=== PATIENT | female | born 1970 | race Caucasian/White ===

== ENCOUNTER 2019-07-25 18:50 | Emergency (ER) | payer BC, OTHER, SELFPAY ==
[2019-07-25] MEDS ORDERED: NA CHLORIDE 0.9% 2,000 ML ONE (19:30)
[2019-07-25 19:46] LABS: Absolute Lymphocytes (CBC) 2.2 K/uL (0.7-4.9); Basophils % 0.8 % (0-1.3); Hematocrit 37.3 % (36.0-45.0); Lymphocytes % 25.3 % (15.3-44.8); MPV 8.4 fL (7.6-11.3); RBC Red Blood Cell Count 4.09 M/uL (3.86-4.86)
[2019-07-25 19:49] LABS: Protime INR 0.96
[2019-07-25 20:25] LABS: ALT/SGPT 29 U/L (12-78); AST/SGOT 24 U/L (15-37); Albumin 3.9 g/dL (3.4-5.0); Alkaline Phosphatase 56 U/L (45-117); BUN Blood Urea Nitrogen 10 mg/dL (7-18); Bicarbonate 22 mmol/L (21-32); Bilirubin Direct < 0.1 mg/dL (0-0.2); Bilirubin Total 0.2 mg/dL (0.2-1.0); Glucose Level 138 mg/dL (74-106); Potassium 3.3 mmol/L (3.5-5.1); Sodium Level 134 mmol/L (136-145)
[2019-07-25] MEDS ORDERED: KCL 20 MEQ/100 mL IVPB 20 MEQ/100 ML BAG IV ONE (21:07)
[2019-07-25] MEDS ORDERED: POTASSIUM CL SA 10 MEQ TAB PO ONE (21:07)
[2019-07-25] MEDS ORDERED: NA CHLORIDE 0.9% 250 ML ONE (21:08)
[2019-07-25 22:22] LABS: Barbiturates NEGATIVE (NEGATIVE); Benzodiazepines NEGATIVE (NEGATIVE); Cocaine NEGATIVE (NEGATIVE); METHAMPHETAM POSITIVE (NEGATIVE); Methadone NEGATIVE (NEGATIVE); Opiates NEGATIVE (NEGATIVE); Phencyclidine NEGATIVE (NEGATIVE); THC Cannibis NEGATIVE (NEGATIVE)
[2019-07-25] MEDS ORDERED: NA CHLORIDE 0.9% 1,000 ML ONE (23:18)
[2019-07-25 23:24] LABS: Urine Blood NEGATIVE (NEG); Urine Glucose NEGATIVE (NEG); Urine Protein NEGATIVE (NEG); Urine Specific Gravity <1.005 (1.005-1.030)
--- NOTE | 2019-07-26 04:25 | ER ---
Nurse's Notes [facility] Name: Tanvi Waters Age: 48 yrs Sex: Female : 1970 Arrival Date: 07/25/2019 Time: 18:53 Bed 3 Private MD: Diagnosis: Suicidal ideations;Intentional Overdose Presentation: 07/25 18:54 Presenting complaint: EMS states: Auditory hallucinations x 2 years, but has gotten ss worse over the past 2-3 weeks. Pt took Latuda 80 mg x 10 tabs and Hydroxyzine HCL 25 mg x 10 tablets at 1800 today. Transition of care: patient was not received from another setting of care. Onset of symptoms is unknown. Risk Assessment: Do you want to hurt yourself or someone else? Patient reports no desire to harm self or others. Initial Sepsis Screen: Does the patient meet any 2 criteria? HR > 90 bpm. Does the patient have a suspected source of infection? No. Patient's initial sepsis screen is negative. Care prior to arrival: None. 18:54 Method Of Arrival: EMS: [facility] 18:54 Acuity: CONCHITA 2 ss Historical: - Allergies: 19:01 Paxil; ss - Home Meds: 19:01 Latuda 80 mg oral tab 1 tab once daily [Active]; hydroxyzine HCl 25 mg Oral tab 1 tab ss daily [Active]; - PMHx: 19:01 PTSD; Bipolar disorder; Depression; ss - PSHx: 19:01 partial hysterectomy; ; partial thyroidectomy; ss - Immunization history:: Adult Immunizations up to date. - Coronavirus screen:: The patient has NOT traveled to [place], [place], or [place] in the past 14 days. Proceed with normal triage process as indicated. - Social history:: Smoking status: Patient denies any tobacco usage or history of. - Family history:: not pertinent. - Ebola Screening: : Patient denies exposure to infectious person Patient denies travel to an Ebola-affected area in the 21 days before illness onset. - Hospitalizations: : No recent hospitalization is reported. Screenin:27 Abuse screen: Denies threats or abuse. Nutritional screening: No deficits noted. vc Tuberculosis screening: No symptoms or risk factors identified. Fall Risk Secondary diagnosis (15 points) impaired mobility, impaired cognitive ability related to medication consumption.. IV access (20 points). Ambulatory Aid- None/Bed Rest/Nurse Assist (0 pts). Gait- Weak (10 pts.). Mental Status- Overestimates/Forgets Limitations (15 pts.). Total Santana Fall Scale indicates High Risk Score (45 or more points). Fall prevention measures have been instituted. Side Rails Up X 2 Placed Close to Nursing Station 1:1 Attendant Assigned Frequent Obs/Assessments Occuring Family Present and informed to notify staff if the need to leave the bedside. Assessment: 19:02 Reassessment: Poison control recommends that if patient looks drowsy give activated ss charcoal now. As long as patient is protecting her airway and has good bowel sounds, go ahead and administer activated charcoal. latuda may cause vomiting, lethargy, hypotension, tachycardia and possibly some dystonia and elevated TSH level. 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 Recommendations to obtain tox labs, telemetry, observe for a minimum of 6-8 hours if patient is still exhibiting symptoms a longer obs time is recommended. Case number is [id number]. 19:30 General: Appears in no apparent distress. uncomfortable, Behavior is calm, cooperative. vc Pain: Denies pain. Neuro: Level of Consciousness is awake, obeys commands, lethargic, Oriented to person, place, time, situation. Cardiovascular: Capillary refill < 3 seconds Patient's skin is warm and dry. Respiratory: Airway is patent Respiratory effort is even, unlabored. GI: No deficits noted. : Urine is clear. EENT: No signs and/or symptoms were reported regarding the EENT system. Derm: Skin is intact, is healthy with good turgor. 19:30 General:. Neuro:. Musculoskeletal: Circulation, motion, and sensation intact. Range of vc motion: intact in all extremities. 19:47 Reassessment: Patient belongings sent with security. vc 20:39 Reassessment: Patients mom and aunt at bedside. Mariajose Velasquez, mother, [phone]. Annette vc Mathias, [phone], aunt. 21:31 Reassessment: Patient laying with eyes closed, vital signs stable. vc 21:50 Reassessment: Patients daughter and daughters boyfriend at the bedside. All personal vc belongings left outside of patients room. 22:14 Reassessment: Spoke with Kenneth from [facility] for follow up on lp1 patient; Recommends to continue monitoring patient for ENERGY SYSTEMS LABORATORY DIRECTOR depression, hypotension related to ingestion of Latuda and + ETOH. 23:00 Reassessment: Patient complaining IV on right arm is causing pain. IV discontinued for vc infiltration. Will continue to monitor. 07/26 00:00 Reassessment: Patient resting with eyes closed, respirations even and unlabored, vc patient slightly hypotensive, will continue to monitor. 01:00 Reassessment: Patient resting with her eyes closed. Pressures are still hypotensive. vc Will continue to monitor. 02:00 Reassessment: Patient and/or family updated on plan of care and expected duration. Pain vc level reassessed. Patient denies pain at this time. 02:55 Reassessment: Patient resting with eyes closed, mildly hypotensive, will continue to vc monitor. 04:00 Reassessment: Patient and/or family updated on plan of care and expected duration. Pain vc level reassessed. Patient states that she feels better she just feels "so tired". Patient to be transferred to Psychiatric facility, pending acceptance. Patient denies pain at this time. 05:00 Reassessment: Patient resting with eyes closed. No complaints at this time. vc 06:00 Reassessment: Patient and/or family updated on plan of care and expected duration. Pain vc level reassessed. Patient resting with eyes closed. 06:45 Reassessment: Patient and/or family updated on plan of care and expected duration. Pain vc level reassessed. Patient is alert, oriented x 3, equal unlabored respirations, skin warm/dry/pink. 07:38 Reassessment: Nurse to nurse with Zuleyma at [facility] done, Zuleyma reports she jl7 will set up doc-to-doc at this time. 07:52 Reassessment: Nurse to nurse with gallo at [facility], will set up doc-to-doc. jl7 Psych: 07/25 19:30 Subjective: Patient's mood is sad, Hallucinations are auditory, Patient stated that she vc is hearing voices. "voices telling me how bad of a person I was, they were going to send me to correction or alf." "I didn't care anymore" , "the voices are constant", "they won't stop.". Objective: Patient is cooperative, restless, Speech is slow, slurred, Affect is flat. Interventions: Removed personal items and placed in bag. Patient placed in hospital gown. Searched person for dangerous items. Urine collected and sent for urine drug test. Belonging list filled out. Suicide Risk Assessment: Sad Person Scale: Sex of patient: Female: Score 0 points. Age of patient: Score 0 point if patient falls outside of specified age parameters. Depression: Score 1 point if signs of depression are present. Previous Attempt: Score 1 point if patient has previously attempted suicide. Substance Abuse: Score 1 point if patient abuses alcohol or drugs. Rational Thinking: Score 1 point if patient is lacking rational thinking. Social Support: Score 0 if social support is present/available. Organized Plan: Score 1 point if patient had a plan in place. Relationship: Score 1 point if patient is , , , or for a single male Chronic Sickness: Score 0 point if patient does not have a chronic illness, debilitating, or severe disorder. TOTAL POINTS: If total points are 5-6, proposed clinical action is to strongly consider hospitalization, depending upon confidence in the follow-up arrangement. Implement suicide precautions. Safety Checks: Personal items have been removed. Door is open. 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 Patient uses Last use was 1 hours ago. Patient uses methamphetamines Unknown of amount used. Commitment: Patient will be an involuntary commitment. Overdose: 19:30 Patient took "a hand full" of Lutinda and hydroxyzine. vc 19:30 Overdose occurred 1-2 hours ago. vc Vital Signs: 01:30 BP 93 / 53; Pulse 78; Resp 14; Pulse Ox 97% on R/A; vc 18:53 BP 118 / 81; Pulse 117; Resp 16; Pulse Ox 97% on R/A; Weight 72.57 kg; Height 5 ft. 2 ss in. (157.48 cm); Pain 0/10; 19:00 BP 104 / 73; Pulse 107; Resp 15; Pulse Ox 96% on R/A; Pain 0/10; vc 19:15 BP 121 / 83; Pulse 115; Resp 14; Pulse Ox 97% on R/A; vc 19:30 BP 110 / 68; Pulse 118; Resp 14; Pulse Ox 97% on R/A; vc 20:00 BP 90 / 67; Pulse 77; Resp 18; Pulse Ox 98% on R/A; kj1 20:30 BP 96 / 75; Pulse 70; Resp 16; Pulse Ox 100% on R/A; rv 20:45 BP 90 / 70; Pulse 73; Resp 15; Pulse Ox 100% on R/A; rv 21:00 BP 94 / 67; Pulse 76; Resp 14; Pulse Ox 99% on R/A; vc 21:15 BP 92 / 69; Pulse 74; Resp 15; Pulse Ox 100% on R/A; rv 21:30 BP 96 / 70; Pulse 72; Resp 15; Pulse Ox 99% on R/A; vc 22:00 BP 97 / 72; Pulse 74; Resp 15; Pulse Ox 100% on R/A; vc 22:30 BP 103 / 75; Pulse 67; Resp 13; Pulse Ox 100% on R/A; vc 23:00 BP 95 / 75; Pulse 71; Resp 12; Pulse Ox 99% on R/A; vc 23:30 BP 97 / 64; Pulse 69; Resp 13; Pulse Ox 100% on R/A; vc 07/26 00:00 BP 96 / 51; Pulse 71; Resp 12; Pulse Ox 99% on R/A; vc 00:30 BP 112 / 53; Pulse 69; Resp 14; Pulse Ox 99% on R/A; vc 01:00 BP 93 / 53; Pulse 78; Resp 14; Pulse Ox 97% on R/A; vc 02:00 BP 92 / 54; Pulse 74; Resp 14; Pulse Ox 98% on R/A; vc 02:30 BP 102 / 54; Pulse 74; Resp 14; Pulse Ox 98% on R/A; vc 03:30 BP 112 / 62; Pulse 64; Resp 14; Pulse Ox 100% ; vc 04:00 BP 104 / 63; Pulse 65; Resp 16; Pulse Ox 100% ; vc 04:45 BP 100 / 55; Pulse 65; Resp 13; Pulse Ox 100% on R/A; vc 05:15 BP 95 / 56; Pulse 71; Resp 14; Pulse Ox 98% on R/A; vc 06:01 BP 102 / 67; Pulse 69; Resp 12; Temp 97.9(O); Pulse Ox 97% on R/A; Pain 0/10; vc 06:26 BP 104 / 72; Pulse 69; Resp 12; Pulse Ox 97% on R/A; vc 07:12 BP 94 / 60; Pulse 69; Resp 21; Pulse Ox 100% ; 2 08:00 BP 107 / 63; Pulse 95; Resp 18; Temp 98; Pulse Ox 99% ; fm2 09:00 BP 109 / 73; Pulse 91; Resp 18; Pulse Ox 100% ; fm2 07/25 18:53 Body Mass Index 29.26 (72.57 kg, 157.48 cm) ED Course: 07/25 18:53 Patient arrived in ED. ss 18:53 Arm band placed on right wrist. ss 18:59 Triage completed. ss 19:00 Patient has correct armband on for positive identification. vc 19:00 clerk analyst on. Pulse ox on. NIBP on. Sitter at bedside. vc 19:00 Inserted saline lock: 22 gauge in right antecubital area, using aseptic technique. jb1 Blood collected. 19:01 EKG done, by ED staff. jb1 19:02 Andrea Solares MD is Attending Physician. rn 19:26 Messi Lu RN is Primary Nurse. rv 19:47 Helga Bowen RN is Primary Nurse. 07/26 07:02 initiated transfer with [facility] at this time. ms 07:35 [facility] doing nurse to nurse at this time. ms 07:40 zuleyma from [facility] is setting up Doctor to Doctor. ms 07:41 Maris from [facility] call to decline transfer due to no beds available. ms 07:50 [facility] called to do nurse to nurse at this time. ms 08:17 Dr Hunter doing Doc to Doc with Dr. Phma from [facility]. ms Administered Medications: 07/25 19:39 Drug: NS 0.9% 1000 ml Route: IV; Rate: 1000 ml; Site: right antecubital; 07/26 01:04 Follow up: IV Status: Completed infusion; IV Intake: 1000ml 07/25 19:39 Drug: NS 0.9% 1000 ml Route: IV; Rate: 1000 ml; Site: right antecubital; rv 07/26 01:05 Follow up: IV Status: Completed infusion; IV Intake: 1000ml rv 07/25 21:00 Drug: Potassium Chloride 10 mEq Route: IV; Rate: calculated rate; Site: left vc antecubital; 07/26 01:05 Follow up: IV Status: Completed infusion 07/25 21:18 Drug: Potassium Chloride 40 mEq Route: PO; 07/26 01:05 Follow up: Response: No adverse reaction 07/25 23:20 Drug: NS 0.9% 1000 ml Route: IV; Rate: 1000 ml; Site: right antecubital; rv 07/26 01:05 Follow up: IV Status: Completed infusion; IV Intake: 1000ml rv Intake: 01:04 IV: 1000ml; Total: 1000ml. rv 01:05 IV: 1000ml; Total: 2000ml. rv 01:05 IV: 1000ml; Total: 3000ml. rv Outcome: 04:24 ER care complete, transfer ordered by . rn 09:38 Patient left the ED. ss Signatures: Jesus Victor1 Keyanna Hernández ms, Roman, MD MD rn Ginger, Evette RN RN Shruthi Zimmerman RN RN lp1 Dario Starr RN RN jl7 Messi Lu, RN RN Sandra Harvey fm2 Lsia Nation kj1 Helga Bowen RN RN vc Corrections: (The following items were deleted from the chart) 07/25 21:30 Commitment: Patient will be an involuntary commitment. [facility] 07/26 00:07/25 21:30 Subjective: Patient's mood is sad, Hallucinations are auditory, Patient vc stated that she is hearing voices. "voices telling me how bad of a person I was, they were going to send me to correction or alf." "I didn't care anymore" , "the voices are constant", "they won't stop." 07/26 00:07/25 21:30 Objective: Patient is cooperative, restless, Speech is slow, slurred, Affect is flat, 07/26 00:07/25 21:30 Interventions: Removed personal items and placed in bag. Patient placed in hospital gown. Searched person for dangerous items. Urine collected and sent for urine drug test. Belonging list filled out. 07/26 00:07/25 21:30 Suicide Risk Assessment: Sad Person Scale: Sex of patient: Female: Score 0 vc points. Age of patient: Score 0 point if patient falls outside of specified age parameters. Depression: Score 1 point if signs of depression are present. Previous Attempt: Score 1 point if patient has previously attempted suicide. Substance Abuse: Score 1 point if patient abuses alcohol or drugs. Rational Thinking: Score 1 point if patient is lacking rational thinking. Social Support: Score 0 if social support is present/available. Organized Plan: Score 1 point if patient had a plan in place. Relationship: Score 1 point if patient is , , , or for a single male Chronic Sickness: Score 0 point if patient does not have a chronic illness, debilitating, or severe disorder. TOTAL POINTS: If total points are 5-6, proposed clinical action is to strongly consider hospitalization, depending upon confidence in the follow-up arrangement. Implement suicide precautions. 07/26 00:07/25 21:30 Safety Checks: Personal items have been removed. Door is open. Hospital vc employee to be sitter. 07/26 00:07/25 21:30 Patient uses Last use was 1 hours ago. Patient uses methamphetamines vc Unknown of amount used. 07/26 05:00 04:57 General: Appears in no apparent distress. uncomfortable, Behavior is calm, vc cooperative, vc : 04:57 Pain: Denies pain. vc 05: 04:57 Neuro: Level of Consciousness is awake, obeys commands, lethargic, Oriented to vc person, place, time, situation, vc : 04:57 Cardiovascular: Capillary refill < 3 seconds Patient's skin is warm and dry. vc 05: 04:57 Respiratory: Airway is patent Respiratory effort is even, unlabored, vc vc 05: 04:57 GI: No deficits noted. vc : 04:57 : Urine is clear, vc 05: 04:57 EENT: No signs and/or symptoms were reported regarding the EENT system. vc : 04:57 Derm: Skin is intact, is healthy with good turgor, vc 07/25 19:30 General: Appears in no apparent distress. uncomfortable, Behavior is calm, vc cooperative, vc 07/26 05:07/25 19:30 EENT: No deficits noted. vc 07/26 05:07/25 19:30 Neuro: Level of Consciousness is awake, obeys commands, lethargic, Oriented vc to person, place, time, situation, vc 07/26 19:30 Cardiovascular: Capillary refill < 3 seconds Patient's skin is warm and vc dry. vc 07/26 19:30 Respiratory: Respiratory effort is even, unlabored, vc vc 07/26 19:30 GI: No signs and/or symptoms were reported involving the gastrointestinal vc system. vc 07/26 19:30 : Urine is clear, vc vc 07/26:30 Derm: Skin is intact, is healthy with good turgor, vc vc 07/26 19:30 Musculoskeletal: Circulation, motion, and sensation intact. Range of vc motion: intact in all extremities, vc 07/26 06:08 04:00 Reassessment: Patient and/or family updated on plan of care and expected vc duration. Pain level reassessed. Patient states that she feels better she just feels "so tired". Patient denies pain at this time. vc 07/25 21:00 BP 81 / 67; Pulse 76bpm; Resp 14bpm; Pulse Ox 99% RA; rv vc 07/26 21:30 BP 86 / 70; Pulse 72bpm; Resp 15bpm; Pulse Ox 99% RA; rv vc 07/26 23:30 BP 82 / 59; Pulse 69bpm; Resp 13bpm; Pulse Ox 100% RA; vc vc 07/26 06:01 BP 83 / 51; Pulse 69bpm; Resp 14bpm; Pulse Ox 97% RA; Temp 97.9F Oral; Pain 0/10; vc vc 08:17 Dr Hutner doing Doc to Doc with Dr. Pham from [facility] ms ms
--- NOTE | 2019-07-26 04:25 | EDPHYS ---
Physician Documentation [facility] Name: Tanvi Waters Age: 48 yrs Sex: Female : 1970 Arrival Date: 07/25/2019 Time: 18:53 Bed 3 Private MD: ED Physician Andrea Solares HPI: 07/25 19:03 This 48 yrs old Female presents to ER via EMS with complaints of Overdose. rn 19:03 The patient presents to the emergency department with a possible overdose. Context: rn Method: the patient has a confirmed or suspected ingestion, Time: the patient's OD/poisoning occurred at an unknown time. Associated signs and symptoms: Pertinent positives: auditory hallucinations, decreased level of consciousness, Pertinent negatives: apnea, incontinence, loss of consciousness, palpitations, shortness of breath, visual hallucinations. Severity of symptoms: At their worst the symptoms were mild in the emergency department the symptoms are unchanged. The patient has not experienced similar symptoms in the past. Reports auditory hallucinations, for some time, command, today at unknown time thinks about an hour or earlier took unknown amount of pills in suicide attempt. Has never attempted suicide before. Feels sleepy but denies other problems. . Historical: - Allergies: 19:01 Paxil; ss - Home Meds: 19:01 Latuda 80 mg oral tab 1 tab once daily [Active]; hydroxyzine HCl 25 mg Oral tab 1 tab ss daily [Active]; - PMHx: 19:01 PTSD; Bipolar disorder; Depression; ss - PSHx: 19:01 partial hysterectomy; ; partial thyroidectomy; ss - Immunization history:: Adult Immunizations up to date. - Coronavirus screen:: The patient has NOT traveled to [place], [place], or [place] in the past 14 days. Proceed with normal triage process as indicated. - Social history:: Smoking status: Patient denies any tobacco usage or history of. - Family history:: not pertinent. - Ebola Screening: : Patient denies exposure to infectious person Patient denies travel to an Ebola-affected area in the 21 days before illness onset. - Hospitalizations: : No recent hospitalization is reported. ROS: 19:03 Constitutional: Negative for fever, chills, and weight loss, Eyes: Negative for injury, rn pain, redness, and discharge, Neck: Negative for injury, pain, and swelling, Cardiovascular: Negative for chest pain, palpitations, and edema, Respiratory: Negative for shortness of breath, cough, wheezing, and pleuritic chest pain, Abdomen/GI: Negative for abdominal pain, nausea, vomiting, diarrhea, and constipation, MS/Extremity: Negative for injury and deformity, Skin: Negative for injury, rash, and discoloration, Neuro: Negative for headache, weakness, numbness, tingling, and seizure, Psych: + hallucinations and suicidal ideation Exam: 19:03 Constitutional: This is a well developed, well nourished patient who is awake, rn somnolent, cooperative Head/Face: Normocephalic, atraumatic. Eyes: Pupils equal round and reactive to light, extra-ocular motions intact. Lids and lashes normal. Conjunctiva and sclera are non-icteric and not injected. Cornea within normal limits. Periorbital areas with no swelling, redness, or edema. ENT: dry MM Cardiovascular: Tachycardic, regular Respiratory: No increased work of breathing, no retractions or nasal flaring. Abdomen/GI: soft, non-tender MS/ Extremity: Pulses equal, no cyanosis. Neurovascular intact. Full, normal range of motion. Equal circumference. Neuro: Awake and alert, GCS 15, oriented to person, place, time, and situation. Cranial nerves II-XII grossly intact. Motor strength 5/5 in all extremities. Sensory grossly intact. Vital Signs: 01:30 BP 93 / 53; Pulse 78; Resp 14; Pulse Ox 97% on R/A; vc 18:53 BP 118 / 81; Pulse 117; Resp 16; Pulse Ox 97% on R/A; Weight 72.57 kg; Height 5 ft. 2 ss in. (157.48 cm); Pain 0/10; 19:00 BP 104 / 73; Pulse 107; Resp 15; Pulse Ox 96% on R/A; Pain 0/10; vc 19:15 BP 121 / 83; Pulse 115; Resp 14; Pulse Ox 97% on R/A; vc 19:30 BP 110 / 68; Pulse 118; Resp 14; Pulse Ox 97% on R/A; vc 20:00 BP 90 / 67; Pulse 77; Resp 18; Pulse Ox 98% on R/A; kj1 20:30 BP 96 / 75; Pulse 70; Resp 16; Pulse Ox 100% on R/A; rv 20:45 BP 90 / 70; Pulse 73; Resp 15; Pulse Ox 100% on R/A; rv 21:00 BP 94 / 67; Pulse 76; Resp 14; Pulse Ox 99% on R/A; vc 21:15 BP 92 / 69; Pulse 74; Resp 15; Pulse Ox 100% on R/A; rv 21:30 BP 96 / 70; Pulse 72; Resp 15; Pulse Ox 99% on R/A; vc 22:00 BP 97 / 72; Pulse 74; Resp 15; Pulse Ox 100% on R/A; vc 22:30 BP 103 / 75; Pulse 67; Resp 13; Pulse Ox 100% on R/A; vc 23:00 BP 95 / 75; Pulse 71; Resp 12; Pulse Ox 99% on R/A; vc 23:30 BP 97 / 64; Pulse 69; Resp 13; Pulse Ox 100% on R/A; vc 07/26 00:00 BP 96 / 51; Pulse 71; Resp 12; Pulse Ox 99% on R/A; vc 00:30 BP 112 / 53; Pulse 69; Resp 14; Pulse Ox 99% on R/A; vc 01:00 BP 93 / 53; Pulse 78; Resp 14; Pulse Ox 97% on R/A; vc 02:00 BP 92 / 54; Pulse 74; Resp 14; Pulse Ox 98% on R/A; vc 02:30 BP 102 / 54; Pulse 74; Resp 14; Pulse Ox 98% on R/A; vc 03:30 BP 112 / 62; Pulse 64; Resp 14; Pulse Ox 100% ; vc 04:00 BP 104 / 63; Pulse 65; Resp 16; Pulse Ox 100% ; vc 04:45 BP 100 / 55; Pulse 65; Resp 13; Pulse Ox 100% on R/A; vc 05:15 BP 95 / 56; Pulse 71; Resp 14; Pulse Ox 98% on R/A; vc 06:01 BP 102 / 67; Pulse 69; Resp 12; Temp 97.9(O); Pulse Ox 97% on R/A; Pain 0/10; vc 06:26 BP 104 / 72; Pulse 69; Resp 12; Pulse Ox 97% on R/A; vc 07:12 BP 94 / 60; Pulse 69; Resp 21; Pulse Ox 100% ; fm2 08:00 BP 107 / 63; Pulse 95; Resp 18; Temp 98; Pulse Ox 99% ; 2 09:00 BP 109 / 73; Pulse 91; Resp 18; Pulse Ox 100% ; fm2 07/25 18:53 Body Mass Index 29.26 (72.57 kg, 157.48 cm) ss MDM: 07/25 19:02 Patient medically screened. rn 07/26 04:22 Differential diagnosis: Ingestion/exposure to hydroxyzine, anti-psychotic over rn gyn. Data reviewed: vital signs, nurses notes, lab test result(s), EKG, and as a result, I will admit patient. Counseling: I had a detailed discussion with the patient and/or guardian regarding: the historical points, exam findings, and any diagnostic results supporting the discharge/admit diagnosis, lab results, the need to transfer to another facility, [facility] the required specialist. Response to treatment: the patient's symptoms have markedly improved after treatment, the patient is now symptom free, patient is well hydrated. and as a result, I will admit patient. 07/25 19:03 Order name: Acetaminophen; Complete Time: 20:59 07/25 19:03 Order name: Basic Metabolic Panel; Complete Time: 20:59 07/25 19:03 Order name: CBC with Diff; Complete Time: 20:59 07/25 19:03 Order name: ETOH Level; Complete Time: 20:59 07/25 19:03 Order name: Hepatic Function; Complete Time: 20:59 07/25 19:03 Order name: PT-INR; Complete Time: 20:59 07/25 19:03 Order name: Ptt, Activated; Complete Time: 20:59 07/25 19:03 Order name: Salicylate; Complete Time: 20:59 07/25 19:03 Order name: Urine Drug Screen; Complete Time: 23: 07/25 22:15 Order name: Urine Dipstick--Ancillary (enter results); Complete Time: 23:27 ar5 07/26 04:05 Order name: BMP; Complete Time: 06:11 rn 07/26 04:05 Order name: ETOH Level; Complete Time: 06:11 07/25 19:03 Order name: Urine Test (obtain specimen); Complete Time: 22:33 rn 07/25 19:03 Order name: EKG; Complete Time: 19:04 rn 07/25 19:03 Order name: EKG - Nurse/Tech; Complete Time: 19:19 rn 07/25 19:03 Order name: IV Saline Lock; Complete Time: 19:19 rn 07/25 19:03 Order name: Labs collected and sent; Complete Time: 19:19 rn 07/25 19:03 Order name: Urine Dipstick-Ancillary (obtain specimen); Complete Time: 22:33 rn 07/26 08:08 Order name: Diet Regular; Complete Time: 08:09 ss Administered Medications: 07/25 19:39 Drug: NS 0.9% 1000 ml Route: IV; Rate: 1000 ml; Site: right antecubital; rv 07/26 01:04 Follow up: IV Status: Completed infusion; IV Intake: 1000ml rv 07/25 19:39 Drug: NS 0.9% 1000 ml Route: IV; Rate: 1000 ml; Site: right antecubital; rv 07/26 01:05 Follow up: IV Status: Completed infusion; IV Intake: 1000ml rv 07/25 21:00 Drug: Potassium Chloride 10 mEq Route: IV; Rate: calculated rate; Site: left vc antecubital; 07/26 01:05 Follow up: IV Status: Completed infusion rv 07/25 21:18 Drug: Potassium Chloride 40 mEq Route: PO; vc 07/26 01:05 Follow up: Response: No adverse reaction 07/25 23:20 Drug: NS 0.9% 1000 ml Route: IV; Rate: 1000 ml; Site: right antecubital; rv 07/26 01:05 Follow up: IV Status: Completed infusion; IV Intake: 1000ml rv Disposition: 07/26/19 04:24 Transfer ordered to [facility]. Diagnosis are Suicidal ideations, Intentional Overdose. - Reason for transfer: Higher level of care. - Accepting physician is Dr. Vero Hinton . - Condition is Stable. - Problem is new. - Symptoms have improved. Signatures: Dispatcher [employer] EDMS Jamal Hunter MD MD kdr Nieto, Roman, MD MD rn Smirch, Shelby, RN RN ss Messi Lu RN RN rv Helga Bowen RN RN vc Corrections: (The following items were deleted from the chart) 03:36 02:21 BASIC METABOLIC PANEL+C.LAB.BRZ ordered. EDMS EDMS 03:37 02:21 ETHANOL+C.LAB.BRZ ordered. EDMS EDMS 08:21 04:24 07/26/2019 04:24 Transfer ordered to Psych Facility. Diagnosis is Suicidal kdr ideations; Intentional Overdose. Reason for transfer: Higher level of care. Accepting physician is . Condition is Stable. Problem is new. Symptoms have improved. rn 09:38 08:21 07/26/2019 04:24 Transfer ordered to Psych Facility. Diagnosis is Suicidal ss ideations; Intentional Overdose. Reason for transfer: Higher level of care. Accepting physician is Dr. Vero Hinton . Condition is Stable. Problem is new. Symptoms have improved. kdr
[2019-07-26 05:04] LABS: Potassium 4.6 mmol/L (3.5-5.1)
[2019-07-26 10:17] VITALS: TEMP 98
[2019-07-26 10:18] VITALS: BP 109/73; O2SAT 100
--- NOTE | 2019-07-26 12:00 | EKG ---
Test Date: 2019-07-25 Test Time: 19:03:17 Spring Production Supervisor: JENNIFER MEASUREMENT RESULTS: Intervals: Rate: 107 WY: 136 QRSD: 86 QT: 344 QTc: 459 [place]: P: 56 WY: 136 QRS: -79 T: 61 INTERPRETIVE STATEMENTS: Sinus tachycardia Left anterior fascicular block Abnormal ECG No previous ECG available for comparison Electronically Signed On 07-26-19 11:59:36 PROPERTY UNDERWRITER by Yung Hutchinson
== END 2019-07-26 09:38 ==
LOC: ER 18:50
DX: T43.592A Poisoning by other antipsychotics and neuroleptics, intentional self-harm, initial encounter (principal); Y92.9 Unspecified place or not applicable; R45.851 Suicidal ideations
CPT/HCPCS: 96365; 96361; 93005; 85025; 80048 ×2; 36415; 80320 ×2; 80329 ×2; 85610; 80076; 80307 ×8; 85730; 81003; 99285; 96366; J7030 ×3

== ENCOUNTER 2019-09-11 11:31 | Emergency (ER) | payer BC ==
[2019-09-11] MEDS ORDERED: NA CHLORIDE 0.9% 1,000 ML ONE ×3 (11:45→21:54)
[2019-09-11 11:53] LABS: Absolute Lymphocytes (CBC) 1.2 K/uL (0.7-4.9); Basophils % 0.8 % (0-1.3); Hematocrit 35.5 % (36.0-45.0); Lymphocytes % 24.8 % (15.3-44.8); MPV 8.6 fL (7.6-11.3); RBC Red Blood Cell Count 3.89 M/uL (3.86-4.86)
[2019-09-11 12:02] LABS: Protime INR 1.04
--- NOTE | 2019-09-11 12:31 | EKG ---
Test Date: 2019-09-11 Test Time: 11:42:27 Hog Confinement System Manager: AG/T MEASUREMENT RESULTS: Intervals: Rate: 109 HI: 126 QRSD: 82 QT: 354 QTc: 476 [place]: P: 51 HI: 126 QRS: -72 T: 61 INTERPRETIVE STATEMENTS: Sinus tachycardia Left anterior fascicular block Abnormal ECG Compared to ECG 07/25/2019 19:03:17 No significant changes Electronically Signed On 09-11-19 12:30:41 CDT by Bucky Ray
[2019-09-11 12:46] LABS: ALT/SGPT 16 U/L (12-78); AST/SGOT 12 U/L (15-37); Albumin 3.6 g/dL (3.4-5.0); Alkaline Phosphatase 50 U/L (45-117); BUN Blood Urea Nitrogen 12 mg/dL (7-18); Bicarbonate 26 mmol/L (21-32); Bilirubin Direct 0.1 mg/dL (0-0.2); Bilirubin Total 0.4 mg/dL (0.2-1.0); Creatine Phosphokinase 57 U/L (26-192); Glucose Level 169 mg/dL (74-106); Magnesium 1.6 mg/dL (1.8-2.4); Potassium 3.7 mmol/L (3.5-5.1); Protein, Total 6.8 g/dL (6.4-8.2); Sodium Level 138 mmol/L (136-145)
[2019-09-11] MEDS ORDERED: MAGNESIUM SULFATE 1 gm IVPB 1 GM/100 ML BAG IV ONE (12:53)
[2019-09-11 13:54] LABS: Urine Blood NEGATIVE (NEG); Urine Glucose NEGATIVE (NEG); Urine Protein NEGATIVE (NEG); Urine Specific Gravity 1.015 (1.005-1.030); Urine pH 5.5 (5.0-7.0)
[2019-09-11 13:55] LABS: Barbiturates NEGATIVE (NEGATIVE); Benzodiazepines NEGATIVE (NEGATIVE); Cocaine NEGATIVE (NEGATIVE); METHAMPHETAM NEGATIVE (NEGATIVE); Methadone NEGATIVE (NEGATIVE); Opiates NEGATIVE (NEGATIVE); Phencyclidine NEGATIVE (NEGATIVE); THC Cannibis NEGATIVE (NEGATIVE)
[2019-09-11] MEDS ORDERED: NA CHLORIDE 0.9% 500 ML ONE (19:55)
--- NOTE | 2019-09-11 23:56 | EDPHYS ---
Physician Documentation [facility] Name: Tanvi Watres Age: 49 yrs Sex: Female : 1970 Arrival Date: 09/11/2019 Time: 11:32 Bed 6 Private MD: ED Physician Jamal Hunter HPI: 09/10 12:21 This 49 yrs old Female presents to ER via EMS with complaints of Suicidal la1 Ideation, Overdose. 12:21 The patient presents to the emergency department with anxiety, depression, suicide la1 ideation, and the patient has a plan, to overdose with medications. Onset: The symptoms/episode began/occurred 2 hour(s) ago. Past psychiatric history: Prior diagnosis: bipolar disorder, depression, Psychiatric medications include: trazodone, Seroquel,Risperdal , Primary psychiatric physician: the patient's psychiatric physician is not known, the patient has had a prior suicide gesture, the patient has a previous inpatient psychiatric history, 3 week(s) ago, at [facility]. Associated signs and symptoms: Pertinent positives; suicide ideation. Severity of symptoms: At their worst the symptoms were severe in the emergency department the symptoms have improved. The patient has experienced similar episodes in the past. pt reports that she is going through a lot with her family and some legal troubles, reports she took "a handful" of pills estimated to be about 35 pills of unknown doses of Seroquel, Risperdal, and trazodone. Pt states this was an attempt to kill herself. LEAD APPLICATIONS DEVELOPER: 11:42 LMP N/A - Hysterectomy [id number] Historical: - Allergies: 11:36 Paxil; sv - PMHx: 11:36 Bipolar disorder; Depression; PTSD; sv - PSHx: 11:36 partial hysterectomy; ; partial thyroidectomy; sv - Immunization history:: Adult Immunizations up to date. - Social history:: Smoking status: Patient reports the use of cigarette tobacco products. ROS: 12:23 Constitutional: Negative for fever, chills, and weight loss, Eyes: Negative for injury, la1 pain, redness, and discharge, ENT: Negative for injury, pain, and discharge, Cardiovascular: Negative for chest pain, palpitations, and edema, Respiratory: Negative for shortness of breath, cough, wheezing, and pleuritic chest pain, Abdomen/GI: Negative for abdominal pain, nausea, vomiting, diarrhea, and constipation, Back: Negative for injury and pain, MS/Extremity: Negative for injury and deformity, Neuro: Negative for headache, weakness, numbness, tingling, and seizure. 12:23 Psych: Positive for anxiety, depression, suicide gesture, suicidal ideation, Negative for drug dependence, alcohol dependence, auditory hallucinations, visual hallucinations. Exam: 12:24 Constitutional: This is a well developed, well nourished patient who is awake, alert, la1 and in no acute distress. Head/Face: Normocephalic, atraumatic. Eyes: Pupils equal round and reactive to light, extra-ocular motions intact. Lids and lashes normal. Conjunctiva and sclera are non-icteric and not injected. Cornea within normal limits. Periorbital areas with no swelling, redness, or edema. ENT: Mucous membranes moist. Neck: Trachea midline Chest/axilla: Normal chest wall appearance and motion. Cardiovascular: Regular rate and rhythm with a normal S1 and S2. Respiratory: Lungs have equal breath sounds bilaterally, clear to auscultation Abdomen/GI: Soft, non-tender, with normal bowel sounds. Back: No spinal tenderness. No costovertebral tenderness. Full range of motion. Skin: Warm, dry with normal turgor. Normal color with no rashes, no lesions, and no evidence of cellulitis. MS/ Extremity: Pulses equal, no cyanosis. Neurovascular intact. Full, normal range of motion. Neuro: Awake and alert, GCS 15, oriented to person, place, time, and situation. Cranial nerves II-XII grossly intact. Motor strength 5/5 in all extremities. Sensory grossly intact. Cerebellar exam normal. Vital Signs: 11:34 BP 133 / 98; Pulse 125; Resp 14; Temp 98.2; Pulse Ox 98% ; Pain 0/10; sv 12:14 BP 113 / 75; Pulse 87; Resp 13; Pulse Ox 98% ; sv 12:20 Temp 97.7(O); dh3 12:50 Temp 97.7(O); dh3 12:54 BP 114 / 75; Pulse 86 MON; Resp 15; Pulse Ox 98% on R/A; sv 13:20 Temp 97.5(O); dh3 13:50 Temp 97.7(O); dh3 14:00 BP 103 / 85; Pulse 78; Resp 12; Pulse Ox 99% ; sv 14:20 Temp 98.2(O); dh3 14:50 Temp 97.7(O); dh3 15:12 BP 108 / 79; Pulse 74 MON; Resp 12; Pulse Ox 99% on R/A; sv 15:20 Temp 98.1(O); dh3 15:50 Temp 98.3(O); dh3 16:16 BP 99 / 71; Pulse 64; Resp 12; Pulse Ox 99% ; sv 16:20 Temp 97.7(O); dh3 16:50 Temp 97.9(O); dh3 17:00 BP 93 / 71; Pulse 64; Resp 12; Pulse Ox 100% ; sv 17:50 Temp 98.2(O); dh3 18:17 BP 100 / 70; Pulse 63; Resp 12; Pulse Ox 98% ; sv 18:50 Temp 97.8(O); dh3 19:11 BP 109 / 76 Supine; Pulse 65 MON; Resp 11 S; Pulse Ox 99% on R/A; ds4 19:50 Temp 98.4(O); ds4 19:52 BP 92 / 77; Pulse 67; Resp 10; Pulse Ox 97% on R/A; rv 20:29 BP 102 / 72 Supine; Pulse 69 MON; Resp 11 S; Pulse Ox 98% on R/A; ds4 20:34 BP 90 / 66; Pulse 70; Resp 12; Pulse Ox 97% ; rv 21:07 BP 93 / 57 LA Supine (auto/reg); Pulse 70; Resp 11; Pulse Ox 97% on R/A; jp3 21:52 BP 109 / 61 LA Supine (auto/reg); Pulse 67; Resp 15; Temp 97.9(O); Pulse Ox 98% on R/A; jp3 23:02 BP 92 / 62; Pulse 60; Resp 11; Pulse Ox 98% on R/A; jp3 23:36 BP 94 / 64; Pulse 56; Resp 12; Temp 97.9(O); Pulse Ox 98% on R/A; jp3 09/11 00:04 BP 98 / 65; Pulse 61; Resp 14; Pulse Ox 99% on R/A; jp3 01:16 BP 104 / 79 RA Supine (auto/reg); Pulse 86 MON; Resp 12 S; Pulse Ox 97% on R/A; ds4 02:00 BP 100 / 66; Pulse 80; Resp 18; Temp 98; Pulse Ox 96% ; rv 12:54 Sinus Rhythm sv 15:12 Sinus Rhythm sv 09/10 12:54 QTc-483 sv 14:00 QTc-471 sv 15:12 QTc-462 sv 16:16 QTc-470 sv 17:00 QTc-459 sv 18:17 QTc-465 sv 19:52 qtc-465 rv 09/11 02:00 QTC -462 rv MDM: 09/10 11:33 Patient medically screened. [facility] 16:52 Data reviewed: vital signs, nurses notes, lab test result(s), I have discussed the [facility] patient's presentation/case with the attending Emergency Department Physician; and as a result, I will admit patient. Data interpreted: Pulse oximetry: on room air is 99 %. Interpretation: normal. Counseling: I had a detailed discussion with the patient and/or guardian regarding: the historical points, exam findings, and any diagnostic results supporting the discharge/admit diagnosis, lab results, the need for further work-up and treatment in the hospital. ED course: pt feeling well, poison control recommends repeat ECGs at 4 hour intervals until we have had 2 ECGs with a QTc < 470. Will continue to monitor and see if patient QTc will remain <470 in four hours. . 21:48 ED course: second ECG with QTc <470, pt doing well, will being looking for placement at [facility] facility for suicidal gesture. . 09/10 11:33 Order name: Acetaminophen; Complete Time: 15:30 [facility] 09/10 11:33 Order name: Basic Metabolic Panel; Complete Time: 15:30 [facility] 09/10 11:33 Order name: CBC with Diff; Complete Time: 15:30 [facility] 09/10 11:33 Order name: ETOH Level; Complete Time: 15:30 ca09/10 11:33 Order name: Hepatic Function; Complete Time: 15:30 ca09/10 11:33 Order name: PT-INR; Complete Time: 15:30 ca09/10 11:33 Order name: Ptt, Activated; Complete Time: 15:30 [facility] 09/10 11:33 Order name: Salicylate; Complete Time: 15:30 la1 09/10 11:33 Order name: Urine Drug Screen; Complete Time: 15:30 la1 09/10 12:17 Order name: Magnesium; Complete Time: 13:02 EDMS 09/10 12:17 Order name: LAB Add On sv 09/10 12:22 Order name: LAB Add On sv 09/10 12:29 Order name: Creatine Phosphokinase; Complete Time: 15:30 EDMS 09/10 13:47 Order name: Urine Dipstick--Ancillary (enter results); Complete Time: 15:30 eb 09/10 11:33 Order name: EKG; Complete Time: 11:34 la1 09/10 11:33 Order name: EKG - Nurse/Tech; Complete Time: 12:02 la1 09/10 11:33 Order name: IV Saline Lock; Complete Time: 11:37 la09/10 11:33 Order name: Labs collected and sent; Complete Time: 11:37 la1 09/10 11:33 Order name: Urine Dipstick-Ancillary (obtain specimen); Complete Time: 11:37 la1 09/10 11:33 Order name: Seizure Precautions; Complete Time: 11:36 la1 09/10 13:47 Order name: Urine --Ancillary (enter results); Complete Time: 15:30 eb 09/10 16:30 Order name: EKG; Complete Time: 16:31 sv 09/10 16:30 Order name: EKG - Nurse/Tech; Complete Time: 16:41 sv 09/10 17:17 Order name: Diet Finger Food; Complete Time: 17:17 sv EC:13 Rate is 62 beats/min. Rhythm is regular, Sinus Rhythm. Left axis deviation noted. QRS la1 is negative in lead aVF. MT interval is normal at 138 msec. QRS interval is normal. QT interval is normal at 432 msec. No Q waves. T waves are Normal. No ST changes noted. Clinical impression: Normal ECG. Interpreted by me. Reviewed by me. Administered Medications: 11:42 Drug: NS 0.9% 1000 ml Route: IV; Rate: 1000 ml; Site: left forearm; jl7 12:40 Follow up: Response: No adverse reaction; IV Status: Completed infusion; IV Intake: sv 1000ml 12:52 Drug: Magnesium Sulfate 1 grams Route: IVPB; Infused Over: 45 mins; Site: left hand; sv 13:50 Follow up: Response: No adverse reaction; IV Status: Completed infusion; IV Intake: sv 100ml 15:43 Drug: NS 0.9% 1000 ml Route: IV; Rate: 1000 ml; Site: left wrist; sv 16:41 Follow up: Response: No adverse reaction; IV Status: Completed infusion; IV Intake: sv 1000ml 19:52 Drug: NS 0.9% 500 ml Route: IV; Rate: bolus; Site: left forearm; rv 21:00 Follow up: IV Status: Completed infusion; IV Intake: 500ml ea 22:13 Drug: NS 0.9% 1000 ml Route: IV; Rate: 125 ml/hr; Site: left antecubital; ea 09/11 02:16 Follow up: Response: No adverse reaction; IV Status: Completed infusion ea 00:23 Drug: Magnesium 400 mg Route: PO; ea 02:16 Follow up: Response: No adverse reaction ea Disposition: 09/11/19 23:55 Transfer ordered to Psych Facility. Diagnosis is Suicidal ideations. - Reason for transfer: Higher level of care. - Accepting physician is Dr Wheeler. - Condition is Stable. - Problem is new. - Symptoms have improved. Addendum: 09/14/2019 10:45 Co-signature as Attending Physician, Jamal Hunter MD I agree with the assessment and k dr plan of care. Signatures: Dispatcher [employer] Darcie Fernandez, RN Jamal Flores MD MD kdr Attema, Gregorio, BLOCK FEEDER-C BLOCK FEEDER-Cla1 Dario Starr RN RN jl7 Mari Barragan RN RN ea Wadley, Terrence, MD MD tw4 Messi Lu RN RN rv Corrections: (The following items were deleted from the chart) 09/11 02:23 09/10 23:55 09/11/2019 23:55 Transfer ordered to Psych Facility. Diagnosis is Suicidal ea ideations. Reason for transfer: Higher level of care. Accepting physician is Dr Wheeler. Condition is Stable. Problem is new. Symptoms have improved. tw4
--- NOTE | 2019-09-11 23:56 | ER ---
Nurse's Notes [facility] Name: Tanvi Waters Age: 49 yrs Sex: Female : 1970 Arrival Date: 09/11/2019 Time: 11:32 Bed 6 Private MD: Diagnosis: Suicidal ideations Presentation: 09/10 11:30 Chief complaint: EMS states: Pt ingested about 35 pills of a mixture of Trazadone, sv Seroquel, Risperdol with the intent to harm herself about an hour ago. Pt called 911 herself. 11:30 Care prior to arrival: Medication(s) given: Activated charcoal. sv 11:32 Acuity: CONCHITA 2 sv 11:32 Method Of Arrival: EMS: [facility] sv 11:34 Coronavirus screen: The patient has NOT traveled to a country currently being monitored sv by the [facility] within the last 14 days. Proceed with normal triage procedures. The patient has NOT had contact with any known and/or suspected case of coronavirus. Proceed with normal triage procedures. Ebola Screen: Patient negative for fever greater than or equal to 101.5 degrees Fahrenheit, and additional compatible Ebola Virus Disease symptoms Patient denies exposure to infectious person. Patient denies travel to an Ebola-affected area in the 21 days before illness onset. No symptoms or risks identified at this time. Initial Sepsis Screen: Does the patient meet any 2 criteria? No. Patient's initial sepsis screen is negative. Does the patient have a suspected source of infection? No. Patient's initial sepsis screen is negative. Risk Assessment: Do you want to hurt yourself or someone else? Patient reports desire/thoughts of hurting themselves or someone else. Provider notified. 11:35 Onset of symptoms was September 11, 2019 at 10:30. sv Triage Assessment: 11:30 General: Appears in no apparent distress. comfortable, well developed, Behavior is sv cooperative, appropriate for age, flat. Pain: Denies pain. EENT: black from the activated charcoal.. Neuro: Level of Consciousness is awake, alert, obeys commands, Oriented to person, place, time, situation, Moves all extremities. Full function. Respiratory: Airway is patent Respiratory effort is even, unlabored, Respiratory pattern is regular, symmetrical. Derm: Skin is pink, warm \T\ dry. Musculoskeletal: Range of motion: intact in all extremities. 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 - Social history:: Smoking status: Patient reports the use of cigarette tobacco products. Screenin:34 Abuse screen: Denies threats or abuse. Denies injuries from another. Nutritional sv screening: No deficits noted. Tuberculosis screening: No symptoms or risk factors identified. Fall Risk None identified. Assessment: 12:00 Reassessment: Poison control called case #[id number]. 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 With Seroquel TRAFFIC WORKFORCE REPRESENTATIVE depression, QT prolongation, tachycardia. With Risperdol neuroleptic malignant syndrome which causes AMS and quick hyperthermia. Symptomatic support. They are concerned when QTc level is >470. Stated to add a magnesium level if possible and to possibly give Magnesium sulfate 1gm IVPB over 45 mins and to repeat EKG in a couple of hours. 12:22 Reassessment: QTc-496. sv 12:30 Reassessment: Patient appears in no apparent distress at this time. Patient and/or sv family updated on plan of care and expected duration. Pain level reassessed. General: Appears in no apparent distress. comfortable, Behavior is cooperative, drowsy. Neuro: Level of Consciousness is obeys commands, lethargic, Oriented to person, place, time, situation. 14:20 Reassessment: Informed Gregorio DECAL TRANSFERRER that pt is having an increasing number of PVCs. Gregorio to sv the bedside. 14:37 Reassessment: Patient appears in no apparent distress at this time. Patient and/or sv family updated on plan of care and expected duration. Pain level reassessed. Patient is alert, oriented x 3, equal unlabored respirations, skin warm/dry/pink. 15:30 Reassessment: Patient appears in no apparent distress at this time. General: Appears in sv no apparent distress. Behavior is cooperative, drowsy. Neuro: Level of Consciousness is obeys commands, lethargic, Oriented to person, place, time, situation. 16:29 Reassessment: Francisco carmen [place] poison control center called. Given an update. sv Stated they recommend if her SBP is less than 90 to start pt on vasopressor of choice. 16:39 Reassessment: Poison control called and they stated pt should not go to a psychiatric sv facility until she is back at baseline and EKGs are normal. QTc <470 x 2. Do EKGs Q4h until there are 2 normal EKGs. Check mentation Q4h as well. 17:30 Reassessment: Patient appears in no apparent distress at this time. Pt remains drowsy sv and sleepy. Pt responds to verbal stimuli. 18:20 Reassessment: Patient appears in no apparent distress at this time. sv 19:39 Reassessment: Patient appears in no apparent distress at this time. patient is asleep. rv with sinus rhythm in the monitor at the rate of 72. QTC is at 455. saturation is within normal at 97% at room air. 09/11 00:15 Reassessment: Patient and/or family updated on plan of care and expected duration. Pain rv level reassessed. Patient is alert, oriented x 3, equal unlabored respirations, skin warm/dry/pink. Report called to Allison CALABRESE at [facility]. 01:02 Reassessment: Patient and/or family updated on plan of care and expected duration. Pain ea level reassessed. Patient is alert, oriented x 3, equal unlabored respirations, skin warm/dry/pink. Awaiting on EMS for transfer to [facility]. 02:15 Reassessment: Patient and/or family updated on plan of care and expected duration. Pain ea level reassessed. Patient is alert, oriented x 3, equal unlabored respirations, skin warm/dry/pink. [facility] at facility for transfer. Pt left ED via stretcher per EMS. Pt tolerating well. Psych: 09/10 11:30 Subjective: Patient's mood is sad, Delusions are denied, Hallucinations are denied sv Having thoughts of suicide. Plan for suicide is take a bunch of pills. Objective: Patient is cooperative, Speech is slow, Affect is flat. 11:30 Interventions: Removed personal items and placed in bag. Patient placed in hospital sv gown. Searched person for dangerous items. Belonging list filled out. Patient reassessed during use of restraints. Patient is physically safe. Patient's cardiac status is stable. Patient's respirations are even and unlabored. Patient has good circulation in all extremities as indicated by capillary refill < 3 seconds. Patient's ROM assessed and is intact. Patient nutrition and hydration needs will continue to be monitored and addressed. Patient hygiene and elimination needs met. Patient assessed for signs of distress. Patient remains reasonably comfortable at this time. Assisted patient in de-escalation of behavior by removing stimuli causing behavior where possible. Suicide Risk Assessment: Sad Person Scale: Sex of patient: Female: Score 0 points. Age of patient: Score 0 point if patient falls outside of specified age parameters. Depression: Score 1 point if signs of depression are present. Previous Attempt: Score 1 point if patient has previously attempted suicide. Substance Abuse: Score 0 point if patient does not abuse alcohol or drugs. Rational Thinking: Score 0 point if patient has rational thinking. Social Support: Score 1 point if social support is lacking and/or unavailable. Organized Plan: Score 1 point if patient had a plan in place. Relationship: Score 1 point if patient is , , , or for a single male Chronic Sickness: Score 0 point if patient does not have a chronic illness, debilitating, or severe disorder. TOTAL POINTS: If total points are 5-6, proposed clinical action is to strongly consider hospitalization, depending upon confidence in the follow-up arrangement. Implement suicide precautions. Safety Checks: Personal items have been removed. Door is open. No visitors are present at this time. Pt denies substance abuse. Commitment: Patient will be a voluntary commitment. Vital Signs: 11:34 BP 133 / 98; Pulse 125; Resp 14; Temp 98.2; Pulse Ox 98% ; Pain 0/10; sv 12:14 BP 113 / 75; Pulse 87; Resp 13; Pulse Ox 98% ; sv 12:20 Temp 97.7(O); dh3 12:50 Temp 97.7(O); dh3 12:54 BP 114 / 75; Pulse 86 MON; Resp 15; Pulse Ox 98% on R/A; sv 13:20 Temp 97.5(O); dh3 13:50 Temp 97.7(O); dh3 14:00 BP 103 / 85; Pulse 78; Resp 12; Pulse Ox 99% ; sv 14:20 Temp 98.2(O); dh3 14:50 Temp 97.7(O); dh3 15:12 BP 108 / 79; Pulse 74 MON; Resp 12; Pulse Ox 99% on R/A; sv 15:20 Temp 98.1(O); dh3 15:50 Temp 98.3(O); dh3 16:16 BP 99 / 71; Pulse 64; Resp 12; Pulse Ox 99% ; sv 16:20 Temp 97.7(O); dh3 16:50 Temp 97.9(O); dh3 17:00 BP 93 / 71; Pulse 64; Resp 12; Pulse Ox 100% ; sv 17:50 Temp 98.2(O); dh3 18:17 BP 100 / 70; Pulse 63; Resp 12; Pulse Ox 98% ; sv 18:50 Temp 97.8(O); dh3 19:11 BP 109 / 76 Supine; Pulse 65 MON; Resp 11 S; Pulse Ox 99% on R/A; ds4 19:50 Temp 98.4(O); ds4 19:52 BP 92 / 77; Pulse 67; Resp 10; Pulse Ox 97% on R/A; rv 20:29 BP 102 / 72 Supine; Pulse 69 MON; Resp 11 S; Pulse Ox 98% on R/A; ds4 20:34 BP 90 / 66; Pulse 70; Resp 12; Pulse Ox 97% ; rv 21:07 BP 93 / 57 LA Supine (auto/reg); Pulse 70; Resp 11; Pulse Ox 97% on R/A; jp3 21:52 BP 109 / 61 LA Supine (auto/reg); Pulse 67; Resp 15; Temp 97.9(O); Pulse Ox 98% on R/A; jp3 23:02 BP 92 / 62; Pulse 60; Resp 11; Pulse Ox 98% on R/A; jp3 23:36 BP 94 / 64; Pulse 56; Resp 12; Temp 97.9(O); Pulse Ox 98% on R/A; jp3 09/11 00:04 BP 98 / 65; Pulse 61; Resp 14; Pulse Ox 99% on R/A; jp3 01:16 BP 104 / 79 RA Supine (auto/reg); Pulse 86 MON; Resp 12 S; Pulse Ox 97% on R/A; ds4 02:00 BP 100 / 66; Pulse 80; Resp 18; Temp 98; Pulse Ox 96% ; rv 12:54 Sinus Rhythm sv 15:12 Sinus Rhythm sv 09/10 12:54 QTc-483 sv 14:00 QTc-471 sv 15:12 QTc-462 sv 16:16 QTc-470 sv 17:00 QTc-459 sv 18:17 QTc-465 sv 19:52 qtc-465 rv 09/11 02:00 QTC -462 rv ED Course: 09/10 11:32 Patient arrived in ED. sv 11:32 [facility]C [facility] la1 11:32 Jamal Hunter MD is Attending Physician. la1 11:32 Triage completed. sv 11:35 Arm band placed on. sv 11:35 Patient has correct armband on for positive identification. Placed in gown. Bed in low sv position. Call light in reach. Side rails up X2. Seizure precautions initiated. surveillance system monitor on. Pulse ox on. NIBP on. 11:35 Safety checks: Items removed: yes. Door open/sign placed on door: yes. Family/friend jp3 present: no. Sitter present: Yes. 11:36 Dario Starr RN is Primary Nurse. jl7 11:58 EKG done, by automotive brake technician. reviewed by Jamal Hunter MD. tc 12:22 LAB Add On Sent. sv 12:52 LAB Add On Sent. sv 13:50 Urine collected: clean catch specimen, clear. dh3 15:43 Primary Nurse role handed off by Dario Starr RN sv 15:43 Darcie Madrid, BHARATI is Primary Nurse. sv 16:40 EKG done, by ED staff, reviewed by Gregorio SUAZO. dh3 19:13 Report given to Shante RN, Mari RN, and Ham RN. sv 19:30 Primary Nurse role handed off by Darcie Madrid RN sv 19:36 Messi Lu RN is Primary Nurse. rv 19:55 EKG done, by ED staff, reviewed by Junior Kaur MD. ds4 09/11 02:15 No provider procedures requiring assistance completed. IV discontinued, intact, ea bleeding controlled, No redness/swelling at site. Pressure dressing applied. Administered Medications: 09/10 11:42 Drug: NS 0.9% 1000 ml Route: IV; Rate: 1000 ml; Site: left forearm; jl7 12:40 Follow up: Response: No adverse reaction; IV Status: Completed infusion; IV Intake: sv 1000ml 12:52 Drug: Magnesium Sulfate 1 grams Route: IVPB; Infused Over: 45 mins; Site: left hand; sv 13:50 Follow up: Response: No adverse reaction; IV Status: Completed infusion; IV Intake: sv 100ml 15:43 Drug: NS 0.9% 1000 ml Route: IV; Rate: 1000 ml; Site: left wrist; sv 16:41 Follow up: Response: No adverse reaction; IV Status: Completed infusion; IV Intake: sv 1000ml 19:52 Drug: NS 0.9% 500 ml Route: IV; Rate: bolus; Site: left forearm; rv 21:00 Follow up: IV Status: Completed infusion; IV Intake: 500ml ea 22:13 Drug: NS 0.9% 1000 ml Route: IV; Rate: 125 ml/hr; Site: left antecubital; ea 09/11 02:16 Follow up: Response: No adverse reaction; IV Status: Completed infusion ea 00:23 Drug: Magnesium 400 mg Route: PO; ea 02:16 Follow up: Response: No adverse reaction ea Intake: 09/10 12:40 IV: 1000ml; Total: 1000ml. sv 13:50 IV: 100ml; Total: 1100ml. sv 16:41 IV: 1000ml; Total: 2100ml. sv 21:00 IV: 500ml; Total: 2600ml. ea Outcome: 23:55 ER care complete, transfer ordered by tw4 09/11 02:15 Transferred by ground EMS to other acute care [facility]: [facility] . Transfer ea form completed. Condition: stable Instructed on the need for transfer, Demonstrated understanding of instructions. 02:23 Patient left the ED. ea Signatures: Darcie Madrid, RN RN sv Luciana Landin, green energy marketing analyst EKG Ttc Kit Ni ds4 Gregorio Torres, AURIST-C AURIST-Cla1 Dario Starr RN RN jl7 Mala Mansfield 3 Mari Barragan RN RN ea Wadley, Terrence, MD MD tw4 Messi Lu RN Ronny Theodore 3 Corrections: (The following items were deleted from the chart) 09/10 11:53 11:34 BP 133 / 98; Pulse 25bpm; Resp 14bpm; Pulse Ox 98%; Temp 98.2F; Pain 0/10; sv sv 14:21 14:00 BP 103 / 85; Pulse 78bpm; Resp 12bpm; Pulse Ox 99%; sv sv 16:29 15:12 BP 108 / 79; Pulse 74bpm; Monitor: Sinus RhythmResp 12bpm; Pulse Ox 99% RA; sv sv 16:29 16:16 BP 99 / 71; Pulse 64bpm; Resp 12bpm; Pulse Ox 99%; sv sv 19:56 19:52 BP 92 / 77; Pulse 67bpm; Resp 10bpm; Pulse Ox 97% RA; qtc-471; rv rv
[2019-09-12] MEDS ORDERED: MAGNESIUM OXIDE 400 MG TAB ONE ×2 (00:24→00:26)
[2019-09-12 03:46] VITALS: TEMP 97.9
[2019-09-12 03:53] VITALS: BP 104/79; O2SAT 97
--- NOTE | 2019-09-12 08:29 | EKG ---
Test Date: 2019-09-11 Test Time: 16:37:54 Managed Care Director: A[place] MEASUREMENT RESULTS: Intervals: Rate: 62 NM: 138 QRSD: 86 QT: 426 QTc: 432 [place]: P: 54 NM: 138 QRS: -45 T: 52 INTERPRETIVE STATEMENTS: Normal sinus rhythm Left anterior fascicular block Abnormal ECG Compared to ECG 09/11/2019 11:42:27 Sinus tachycardia no longer present Electronically Signed On 09-12-19 08:27:51 CDT by Bucky Ray
--- NOTE | 2019-09-14 06:58 | EKG ---
Test Date: 2019-09-11 Test Time: 19:54:33 Supervisor Seaming: ARTI MEASUREMENT RESULTS: Intervals: Rate: 64 [place]: 132 QRSD: 82 QT: 426 QTc: 439 [place]: P: 50 NJ: 132 QRS: -47 T: 53 INTERPRETIVE STATEMENTS: Normal sinus rhythm Left anterior fascicular block Abnormal ECG Compared to ECG 09/11/2019 16:37:54 No significant changes Electronically Signed On 09-14-19 06:55:20 CDT by Bucky Ray
== END 2019-09-12 02:23 ==
LOC: ER 11:31
DX: R45.851 Suicidal ideations (principal); F17.210 Nicotine dependence, cigarettes, uncomplicated
CPT/HCPCS: 96365; 96361; 93005 ×3; 85025; 80048; 36415; 80320; 83735; 82550; 80329 ×2; 81025; 85610; 80076; 80307 ×8; 85730; 81003; 99285; J3475; J7040; J7030 ×3

== ENCOUNTER 2022-12-01 11:43 | Emergency (ER) | payer SELFPAY ==
--- OUTSIDE RECORDS SUMMARY | 2022-12-01 11:46 | XMS REPORT | Continuity of Care Document ---
:1970 Author Organization [facility] t Address [address] [place] [address] Care Team Providers Name Role Phone Unavailable Unavailable Unavailable Problems This patient has no known problems. Allergies, Adverse Reactions, Alerts This patient has no known allergies or adverse reactions. Medications This patient has no known medications. Procedures This patient has no known procedures. Encounters Start End Encounter Admission Attending Care Care Encounter Source Date/Time Date/Time Type Type Clinicians Facility Department ID 2022-10-08 2022-10-08 Outpatient [facility] [id number] Rg 08:23:54 08:23:54 [id number] F Everardo 2022-06-26 2022-06-26 Outpatient [facility] [id number] Rg 11:28:43 11:28:43 [id number] F Ewing 2022-05-16 2022-05-16 Outpatient [facility] [id number] Rg 13:14:48 13:14:48 [id number] F Everardo Results Test Description Test Time Test Comments Results Result Comments Source HIV 1/2 4TH GEN, RFLX CONF 2021-11-14 03:26:41 Test Item Value Reference Range Interpretation Comme nts HIV 1/2 4TH GEN, RFLX NON-REACTIVE NON-REACTIVE UNLES S OTHERWISE INDICATED, ALL CONF (test code = 3514) TEST ING PERFORMED ATCLINICAL PATHOLOGY LABOR [employer] [address] [place] [address] LABORATORY DIRE CTOR: MADDIE PATEL M.D. CLIA NUMBER [id number] [place]. [id number] TSH, THIRD [id number] 02:23:43 Test Item Value Reference Range Interpretation Comments TSH, THIRD GENERATION (test code 0.498 UIU/ML 0.400-4.100 = 2821) LIPID [id number] 00:11:59 Test Item Value Reference Range Interpretation Comments CHOLESTEROL (test 207 MG/DL <200 H code = 2210) TRIGLYCERIDES (test 41 MG/DL <150 code = 2232) HDL CHOLESTEROL (test 95 MG/DL >39 code = 2220) CALC LDL CHOL (test 100 MG/DL <100 H NOTE: C ALCULATED LDL code = 2237) IS BASED ON PRABHU-SALINAS METHOD WHICHINCLUDES ADJUSTABLE TRIGLYCERIDE:VL DL CHOLESTEROL RAT IO.THIS FACTOR VARIES B Y MEASURED TRIGLY CERIDE AND NON-HDLCHOL ESTEROL CONCENTRATIONS WITH INCREASED CALCU LATED LDL SEENIN HIGH ER TRIGLYCERIDE OR LOWER NON-HDL SPECIME NS. FOR MOREINFORMATION , SEE CLIENT ANNOUNCE MENT AT [email or web address] RATIO LDL/HDL 1.05 RATIO <3.22 (test code = 2238) COMPREHENSIVE METABOLIC [id number] 00:11:59 Test Item Value Reference Range Interpretation Comments GLUCOSE (test code = 99 MG/DL 70-99 2216) BUN (test code = 14 MG/DL 6-20 2207) CREATININE (test 1.03 MG/DL 0.60-1.30 code = 2214) eGFR (2020 CKD-EPI) 65 ML/MIN/1.73 >60 (test code = 97785) CALC BUN/CREAT (test 14 RATIO 6-28 code = 2235) SODIUM (test code = 139 MEQ/L 100-234 3036) POTASSIUM (test code 5.0 MEQ/L 3.5-5.4 = 2227) CHLORIDE (test code 102 MEQ/L 95-107 = 2214) CARBON DIOXIDE (test 24 MEQ/L 19-31 code = 2206) CALCIUM (test code = 9.7 MG/DL 8.5-10.5 2208) PROTEIN, TOTAL (test 7.0 G/DL 6.1-8.3 code = 2229) ALBUMIN (test code = 4.7 G/DL 3.5-5.2 2200) CALC GLOBULIN (test 2.3 G/DL 1.9-3.7 code = 2240) CALC A/G RATIO (test 2.0 RATIO 1.0-2.6 code = 2234) BILIRUBIN, TOTAL 0.2 MG/DL See_Comment [Automated message] (test code = 2207) The [place] m which generated this result transmit eric reference range : <=1.2. The refe rence range was not u sed to interpret th is result as normal/abnormal . ALKALINE PHOSPHATASE 68 U/L 40-132 (test code = 4) AST (test code = 24 U/L 9-40 2217) ALT (test code = 16 U/L 5-40 2218) CBC W/AUTO DIFF WITH [id number] 04:28:22 Test Item Value Reference Range Interpretation Comments WBC (test code = 6.2 K/UL 3.5-11.0 1001) RBC (test code = 4.43 M/UL 3.80-5.40 1002) HEMOGLOBIN (test code 13.7 G/DL 11.5-15.5 = 1003) HEMATOCRIT (test code 40.8 % 34.0-45.0 = 1004) MCV (test code = 92.1 fL 80.0-99.0 1005) MCH (test code = 30.9 PG 25.0-33.0 1006) MCHC (test code = 33.6 G/DL 31.0-36.0 1007) RDW (test code = 11.6 % 11.5-15.0 1038) NEUTROPHILS (test 69.3 % code = 1008) LYMPHOCYTES (test 22.0 % code = 1010) MONOCYTES (test code 6.3 % = 1011) EOSINOPHILS (test 1.1 % code = 1012) BASOPHILS (test code 1.0 % = 1013) IMMATURE GRANULOCYTES 0.3 % (test code = 1036) NUCLEATED RBCS (test 0.0 /100 WBC'S See_Comment [Aut omated code = 1065) message] The sy stem which generated this result transmitted reference range : 0.0. The refere nce range was not u sed to interpret th is result as normal/abnormal . PLATELET COUNT (test 217 K/UL 130-400 code = 1015) ABSOLUTE NEUTROPHILS 4.32 K/UL 1.50-7.50 (test code = 1066) ABSOLUTE LYMPHOCYTES 1.37 K/UL 1.00-4.00 (test code = 1067) ABSOLUTE MONOCYTES 0.39 K/UL 0.20-1.00 (test code = 1068) ABSOLUTE EOSINOPHILS 0.07 K/UL 0.00-0.50 (test code = 1040) ABSOLUTE BASOPHILS 0.06 K/UL 0.00-0.20 (test code = 1069) ABS IMMATURE 0.02 K/UL 0.00-0.10 GRANULOCYTES (test code = 1020) ABS NUCLEATED RBCS 0.00 K/UL 0.00-0.11 (test code = 06730) HEMOGLOBIN [id number] 04:15:53 Test Item Value Reference Range Interpretation Comments HEMOGLOBIN A1c (test code = 65703) 5.5 % 4.2-5.6
[2022-12-01] MEDS ORDERED: SUCRALFATE 1 GM TABLET ONE (12:15)
[2022-12-01] MEDS ORDERED: FAMOTIDINE 20 MG/2 ML VIAL IV ONE (12:15)
[2022-12-01] MEDS ORDERED: MAGNES/ALUMIN/SIMET 30ML UCUP ONE (12:15)
[2022-12-01 12:19] LABS: Absolute Lymphocytes (CBC) 1.6 K/uL (0.7-4.9); Lymphocytes % 23.9 % (15.3-44.8); MCV 93.7 fL (80-100); MPV 8.4 fL (7.6-11.3); RBC Red Blood Cell Count 4.16 M/uL (3.86-4.86)
[2022-12-01 12:36] LABS: Albumin 3.8 g/dL (3.4-5.0); Bilirubin Total 0.2 mg/dL (0.2-1.0)
--- NOTE | 2022-12-01 13:12 | RAD REPORT ---
EXAM DESCRIPTION: CTAbdomen Pelvis W Contrast - 12/01/2022 12:58 pm CLINICAL HISTORY: abd pain, cramping, vomiting COMPARISON: No comparisons TECHNIQUE: CT of the abdomen and pelvis was performed. All CT scans are performed using dose optimization technique as appropriate and may include automated exposure control or mA/KV adjustment according to patient size. FINDINGS: Lower chest: No acute abnormality. Mild circumferential thickened distal esophagus. Liver: No acute abnormality or suspicious lesions. Biliary: No biliary ductal dilatation. Stomach: No significant focal abnormality. Duodenum: No significant focal abnormality. Pancreas: No significant abnormality. Spleen: No significant abnormality. Adrenal: No suspicious lesions. Kidney/ureter: No hydronephrosis. No renal calculi. Retroperitoneum: No retroperitoneal adenopathy. Vascular: No aneurysm. Bowel: No significant focal abnormality. Normal appendix. Peritoneum: No ascites or free air. Bladder: Grossly unremarkable. Reproductive: No adnexal masses. Bones: No acute fracture. Severe disc height loss at L5-S1 . Other: n/a IMPRESSION: No acute intra-abdominal or pelvic finding. Normal appendix.
--- NOTE | 2022-12-01 13:51 | EDPHYS ---
Physician Documentation [facility] Name: Tanvi Waters Age: 52 yrs Sex: Female : 1970 Arrival Date: 12/01/2022 Time: 11:43 Bed 5 Private MD: ED Physician Von Taylor HPI: 12/01 13:47 This 52 yrs old Female presents to ER via Ambulatory with complaints of bs3 Abdominal Pain, Nausea. 13:47 52-year-old female history of bipolar disorder, depression, PTSD presents with bs3 epigastric pain that has been going on since August stress makes it worse nothing seems to make it better is intermittent she is never seen anyone for it she denies any associate fevers chills or weight loss no chest pain no shortness of breath no lower abdominal pain she cannot really describe the pain sometimes associated with not eating. Historical: - Allergies: 12:02 Paxil; ll1 12:02 Zoloft; ll1 - PMHx: 12:02 Bipolar disorder; Depression; PTSD; ll1 - PSHx: 12:02 ovaries removed; 1/2 thyroid removed; ll1 - Immunization history:: Adult Immunizations up to date. - Social history:: Smoking status: Patient reports the use of cigarette tobacco products, smokes one pack cigarettes per day. ROS: 13:47 Constitutional: Negative for fever, chills bs3 13:47 All other systems are negative. Exam: 13:47 Constitutional: Appears anxious she is fidgety but otherwise appears in no acute bs3 distress Head/Face: Normocephalic, atraumatic. Eyes: Pupils equal round and reactive to light, extra-ocular motions intact. Lids and lashes normal. ENT: mmm, no posterior phyarngeal erythema Neck: Trachea midline, no thyromegaly, no neck stiffness Chest/axilla: Normal chest wall appearance and motion. Nontender with no deformity. No lesions are appreciated. Cardiovascular: Regular rate and rhythm with a normal S1 and S2. symmetric pulses in upper extremities Respiratory: Lungs have equal breath sounds bilaterally, clear to auscultation, no respiratory distress Abdomen/GI: Soft, non-tender, no rebound or guarding Back: No spinal tenderness. No costovertebral tenderness. Full range of motion. Pelvic Exam: Normal external genitalia. Speculum exam with closed cervical os, no discharge or bleeding noted. Bimanual exam with normal adnexa, no adnexal or cervical motion tenderness. Normal uterus. MS/ Extremity: Pulses equal, no cyanosis. Neurovascular intact. Full, normal range of motion. Neuro: Awake and alert, GCS 15, oriented to person, place, time, and situation. Cranial nerves II-XII grossly intact. Motor strength 5/5 in all extremities. Sensory grossly intact. Vital Signs: 12:01 BP 125 / 85; Pulse 85; Resp 16; Temp 99; Pulse Ox 95% ; Weight 64.86 kg; Height 5 ft. 2 ll1 in. ; Pain 8/10; 13:00 BP 131 / 86; Pulse 81; Resp 18; Pulse Ox 96% on R/A; ld1 12:01 Body Mass Index 26.15 (64.86 kg, 157.48 cm) ll1 12:01 Pain Scale: Adult ll1 MDM: 11:49 Patient medically screened. bs3 13:47 Data reviewed: vital signs, nurses notes. ED course: Possible biliary versus pancreatic bs3 versus esophageal versus gastric not consistent with diverticulitis or appendicitis we will check labs we will do CT as she has poor follow-up and reassess Her work-up was negative for acute pathology advised outpatient follow-up with GI for further work-up although this may be related to her depression, bipolar disorder given a copy of her labs and CT. 12/01 11:57 Order name: CBC with Diff; Complete Time: 12:42 bs3 12/01 11:57 Order name: Comprehensive Metabolic Panel; Complete Time: 12:42 bs3 12/01 11:57 Order name: Lipase; Complete Time: 12:42 bs3 12/01 11:57 Order name: CT Abd/Pelvis - IV Contrast Only; Complete Time: 13:21 bs3 Administered Medications: 12:11 Drug: Famotidine IVP 20 mg Route: IVP; Site: right antecubital; ld1 12:11 Drug: Alum-Mag Hydroxide-Simeth PO Suspension (200 mg-200 mg-20 mg/5 mL) 30 ml Route: ld1 PO; 12:11 Drug: Sucralfate PO 1 grams Route: PO; ld1 Disposition Summary: 12/01/22 13:51 Discharge Ordered Location: Home bs3 Problem: new bs3 Symptoms: have improved bs3 Condition: Stable bs3 Diagnosis - Epigastric pain bs3 Followup: bs3 - With: Steve Del Rosario MD - When: 1 week - Reason: Recheck today's complaints Discharge Instructions: - Discharge Summary Sheet bs3 - Pain Without a Known Cause bs3 - Abdominal Pain, Adult, [id number] bs3 Forms: - Medication Reconciliation Form bs3 - Thank You Letter bs3 - Antibiotic Education bs3 - Prescription Opioid Use bs3 Signatures: Dispatcher [employer] EDSania Cobian RN RN ll1 Carmen Newton RN RN ld1 Von Taylor MD MD bs3
--- NOTE | 2022-12-01 13:51 | ER ---
Nurse's Notes [facility] Name: Tanvi Waters Age: 52 yrs Sex: Female : 1970 Arrival Date: 12/01/2022 Time: 11:43 Bed 5 Private MD: Diagnosis: Epigastric pain Presentation: 12/01 12:01 Chief complaint: Patient states: Abd. pain with nausea for 2 days. Coronavirus screen: ll1 Vaccine status: Patient reports receiving the 2nd dose of the covid vaccine. Client denies travel out of the [place] in the last 14 days. At this time, the client does not indicate any symptoms associated with coronavirus-19. Ebola Screen: Patient denies travel to an Ebola-affected area in the 21 days before illness onset. Initial Sepsis Screen: Does the patient meet any 2 criteria? No. Patient's initial sepsis screen is negative. Does the patient have a suspected source of infection? Yes: Acute abdominal pain. Risk Assessment: Do you want to hurt yourself or someone else? Patient reports no desire to harm self or others. Onset of symptoms was November 30, 2022. 12:01 Method Of Arrival: Ambulatory ll1 12:01 Acuity: CONCHITA 3 ll1 Historical: - Allergies: 12:02 Paxil; ll1 12:02 Zoloft; ll1 - PMHx: 12:02 Bipolar disorder; Depression; PTSD; ll1 - PSHx: 12:02 ovaries removed; 1/2 thyroid removed; ll1 - Immunization history:: Adult Immunizations up to date. - Social history:: Smoking status: Patient reports the use of cigarette tobacco products, smokes one pack cigarettes per day. Screenin:00 [facility] ED Fall Risk Assessment (Adult) History of falling in the last 3 months, ld1 including since admission No falls in past 3 months (0 pts). Abuse screen: Denies threats or abuse. Denies injuries from another. Nutritional screening: No deficits noted. Tuberculosis screening: No symptoms or risk factors identified. Assessment: 13:00 General: Appears in no apparent distress. comfortable, Behavior is calm, cooperative, ld1 appropriate for age. Pain: Complains of pain in abdomen Pain does not radiate. Pain currently is 7 out of 10 on a pain scale. Quality of pain is described as throbbing, Is continuous. Neuro: Level of Consciousness is awake, alert, obeys commands, Oriented to person, place, time, situation. Cardiovascular: Capillary refill < 3 seconds Patient's skin is warm and dry. Respiratory: Airway is patent Respiratory effort is even, unlabored. GI: Abdomen is flat, non-distended, Bowel sounds present X 4 quads. Abd is soft Abdomen is tender to palpation. : No signs and/or symptoms were reported regarding the genitourinary system. EENT: No signs and/or symptoms were reported regarding the EENT system. Derm: No signs and/or symptoms reported regarding the dermatologic system. Musculoskeletal: No signs and/or symptoms reported regarding the musculoskeletal system. Vital Signs: 12:01 BP 125 / 85; Pulse 85; Resp 16; Temp 99; Pulse Ox 95% ; Weight 64.86 kg; Height 5 ft. 2 ll1 in. ; Pain 8/10; 13:00 BP 131 / 86; Pulse 81; Resp 18; Pulse Ox 96% on R/A; ld1 12:01 Body Mass Index 26.15 (64.86 kg, 157.48 cm) ll1 12:01 Pain Scale: Adult ll1 ED Course: 11:45 Patient arrived in ED. mr 11:53 Khadra Collier, ANJALI [facility]. jh7 11:53 Von Taylor MD is Attending Physician. 7 12:02 Triage completed. ll1 12:03 Arm band placed on Patient placed in an exam room, on a stretcher. ll1 12:05 Carmen Newton, RN is Primary Nurse. ld1 12:11 CBC with Diff Sent. ld1 12:11 Comprehensive Metabolic Panel Sent. ld1 12:11 Lipase Sent. ld1 12:14 Inserted saline lock: 20 gauge in right antecubital area, using aseptic technique. kc6 Blood collected. 12:59 CT Abd/Pelvis - IV Contrast Only In Process Unspecified. EDMS 13:00 Patient has correct armband on for positive identification. Placed in gown. Bed in low ld1 position. Call light in reach. Side rails up X2. playground monitor on. Pulse ox on. NIBP on. Door closed. Noise minimized. Warm blanket given. 13:00 No provider procedures requiring assistance completed. ld1 13:50 Steve Del Rosario MD is Referral Physician. bs3 Administered Medications: 12:11 Drug: Famotidine IVP 20 mg Route: IVP; Site: right antecubital; ld1 12:11 Drug: Alum-Mag Hydroxide-Simeth PO Suspension (200 mg-200 mg-20 mg/5 mL) 30 ml Route: ld1 PO; 12:11 Drug: Sucralfate PO 1 grams Route: PO; ld1 Outcome: 13:51 Discharge ordered by . bs3 14:07 Patient left the ED. ld1 Signatures: Dispatcher [employer] SARMADMT CadenaLuisana Lynsay RN RN ll1 Carmen Newton RN RN ld1 Khadra Collier, WELDING ROD COATER WELDING ROD COATER jh7 Rhiannon Bates RN RN kc6 Von Taylor MD MD bs3
[2022-12-01 14:26] VITALS: TEMP 99
[2022-12-01 14:32] VITALS: BP 131/86; O2SAT 96
== END 2022-12-01 14:07 | disposition home or self-care (01) ==
LOC: ER 11:43
DX: R10.13 Epigastric pain (principal)
CPT/HCPCS: 36415; 74177; 80053; 83690; 85025; 96374; 99285; Q9967

== ENCOUNTER 2022-12-17 11:36 | Emergency (ER) | payer SELFPAY ==
--- OUTSIDE RECORDS SUMMARY | 2022-12-17 12:07 | XMS REPORT | Continuity of Care Document ---
:1970 Author Organization [facility] t Address [address] [facility] [address] [place] [address] Care Team Providers Name Role Phone Unavailable [...] Clinicians Facility Department ID 2022-10-08 2022-10-08 Outpatient [facility] [id number] Rg 08:23:54 08:23:54 [id number] F [place] 2022-06-26 2022-06-26 Outpatient [facility] [id number] Rg 11:28:43 11:28:43 [id number] [place] 2022-05-16 2022-05-16 Outpatient [facility] [id number] Rg 13:14:48 13:14:48 [id number] F [place] Results Test Description Test Time Test Comments Results Result Comments Source HIV 1/2 4TH GEN, RFLX CONF 2021-11-14 03:26:41 Test Item Value Reference Range Interpretation Comme nts HIV 1/2 4TH GEN, RFLX NON-REACTIVE NON-REACTIVE UNLE SS OTHERWISE INDICATED, CONF (test code = 3514) ALL TESTING PERFORMED ATCLINICAL PATHOLOGY LABOR [employer] [address] [place] [address] LABORATORY DIRE CTOR: MADDIE PATEL M.D. CLIA NUMBER [id number] [place]. [id number] TSH, THIRD [id number] 02:23:43 Test Item Value Reference Range Interpretation Comments TSH, THIRD GENERATION (test code 0.498 UIU/ML 0.400-4.100 = 2821) LIPID [id number] 00:11:59 Test Item Value Reference Range Interpretation [...] MOREINFORMATION , SEE CLIENT ANNOUNCE MENT AT [email or web address] RISK RATIO LDL/HDL 1.05 RATIO <3.22 (test code = 2238) COMPREHENSIVE METABOLIC [id number] 00:11:59 Test Item Value Reference Range Interpretation Comments GLUCOSE (test code = 99 MG/DL 70-99 2216) BUN (test code = 14 MG/DL 6-20 2207) CREATININE (test 1.03 MG/DL 0.60-1.30 code = 2214) eGFR (2020 CKD-EPI) 65 ML/MIN/1.73 >60 (test code = 45249) CALC BUN/CREAT (test 14 RATIO 6-28 code = 2235) SODIUM (test code = 139 MEQ/L 773-344 3459) POTASSIUM (test code 5.0 MEQ/L 3.5-5.4 = 2227) CHLORIDE (test code 102 MEQ/L 95-107 = 221) CARBON DIOXIDE (test 24 MEQ/L 19-31 code [...] [Automated message] (test code = 2207) The syste m which generated this result transmit eric reference range : <=1.2. The refe rence range was not u sed to interpret th is result as normal/abnormal . ALKALINE PHOSPHATASE 68 U/L 40-132 (test code = 2203) AST (test code = 24 U/L 9-40 2217) ALT (test code = 16 U/L 5-40 2218) CBC W/AUTO DIFF WITH [id number] 04:28:22 Test Item Value Reference Range Interpretation [...] RBCS 0.00 K/UL 0.00-0.11 (test code = 24539) HEMOGLOBIN [id number] 04:15:53 Test Item Value Reference Range Interpretation Comments HEMOGLOBIN A1c (test code = 77179) 5.5 % 4.2-5.6
--- NOTE | 2022-12-17 12:31 | RAD REPORT ---
EXAM DESCRIPTION: US - Abdomen Exam Limited - 12/17/2022 12:22 pm CLINICAL HISTORY: Abdominal pain. COMPARISON: None. FINDINGS: The gallbladder wall is not thickened. A gallstone is not seen. The biliary tree is normal caliber. IMPRESSION: Unremarkable gallbladder ultrasound.
[2022-12-17] MEDS ORDERED: NA CHLORIDE 0.9% 1,000 ML ONE (12:45)
[2022-12-17] MEDS ORDERED: ONDANSETRON 4 MG/2 ML VIAL ONE (12:45)
[2022-12-17] MEDS ORDERED: KETOROLAC 30 MG/ML INJ ONE (12:45)
[2022-12-17] MEDS ORDERED: FAMOTIDINE 20 MG/2 ML VIAL IV ONE (12:45)
[2022-12-17 13:20] LABS: Absolute Lymphocytes (CBC) 1.9 K/uL (0.7-4.9); Hematocrit 38.2 % (36.0-45.0); Lymphocytes % 29.4 % (15.3-44.8); MCV 93.4 fL (80-100); MPV 8.7 fL (7.6-11.3); RBC Red Blood Cell Count 4.09 M/uL (3.86-4.86)
[2022-12-17 13:23] LABS: Specific Gravity 1.007 (1.005-1.030); Urine Bilirubin NEGATIVE (Negative); Urine Blood Negative (Negative); Urine Clarity Clear (Clear); Urine Color Colorless (Yellow); Urine Glucose NEGATIVE (Negative); Urine Protein NEGATIVE (Negative); Urine Urobilinogen Normal (Normal)
[2022-12-17 13:38] LABS: Bilirubin Total 0.2 mg/dL (0.2-1.0); Potassium 3.9 mEq/L (3.5-5.1); Protein, Total 6.9 g/dL (6.4-8.2)
--- NOTE | 2022-12-17 14:34 | EDPHYS ---
Physician Documentation [facility] Name: Tanvi Waters Age: 52 yrs Sex: Female : 1970 Arrival Date: 12/17/2022 Time: 11:36 Bed 16 Private MD: ED Physician Bianca Bell HPI: 12/17 12:07 This 52 yrs old Female presents to ER via Ambulatory with complaints of ulcer. kb 12:07 The patient presents with abdominal pain in the upper abdomen. Onset: The kb symptoms/episode began/occurred 5 month(s) ago. The symptoms do not radiate. Associated signs and symptoms: Pertinent positives: nausea and vomiting, Pertinent negatives: constipation, diarrhea, fever. The symptoms are described as burning, constant. Modifying factors: The symptoms are alleviated by carafate . the symptoms are aggravated by nothing. Severity of pain: At its worst the pain was moderate in the emergency department the pain is unchanged. The patient has not experienced similar symptoms in the past. The patient has been recently seen at the [facility] Emergency Department, a couple of weeks ago, for similar complaints labs were performed, CT scan was performed. Pt reports upper abd burning that started 5 months ago. States she was seen here 2 weeks ago and was told it could be an ulcer and that she needed to follow up with GI. States she has not been able to do that yet. Reports carafate was working for a while, but today it hasn't. . Historical: - Allergies: 11:56 Paxil; aa5 11:56 Zoloft; aa5 - PMHx: 11:56 Bipolar disorder; Depression; PTSD; aa5 - PSHx: 11:56 1/2 thyroid removed; ovaries removed; aa5 - Immunization history:: Adult Immunizations unknown. - Social history:: Smoking status: Patient reports the use of cigarette tobacco products, smokes one pack cigarettes per day. ROS: 12:07 Constitutional: Negative for fever, chills, and weight loss. kb 12:07 Abdomen/GI: Positive for abdominal pain, nausea and vomiting, Negative for diarrhea, constipation. 12:07 All other systems are negative. Exam: 12:07 Constitutional: This is a well developed, well nourished patient who is awake, alert, kb and in no acute distress. Head/Face: Normocephalic, atraumatic. ENT: Moist Mucous membranes Cardiovascular: Regular rate and rhythm with a normal S1 and S2. No gallops, murmurs, or rubs. No pulse deficits. Respiratory: Respirations even and unlabored. No increased work of breathing. Talking in full sentences Abdomen/GI: Soft, non-tender. No distention Skin: Warm, dry with normal turgor. Normal color. MS/ Extremity: Pulses equal, no cyanosis. Neurovascular intact. Full, normal range of motion. Neuro: Awake and alert, GCS 15, oriented to person, place, time, and situation. Moves all extremities. Normal gait. Vital Signs: 11:56 BP 125 / 96; Pulse 93; Resp 16 S; Temp 97.8(TE); Pulse Ox 99% on R/A; Weight 61.23 kg aa5 (R); Height 5 ft. 2 in. (R); 13:09 BP 124 / 89; Pulse 71; Resp 16; Pulse Ox 98% ; bp 14:45 BP 124 / 85; Pulse 66; Resp 16; Pulse Ox 100% ; bp 11:56 Body Mass Index 24.69 (61.23 kg, 157.48 cm) aa5 MDM: 12:00 Patient medically screened. kb 12:07 Differential diagnosis: cholecystitis, Cholelithiasis, non-specific abd pain, kb pancreatitis, Peptic Ulcer Disease. Data reviewed: vital signs, nurses notes. 14:19 Counseling: I had a detailed discussion with the patient and/or guardian regarding: the kb historical points, exam findings, and any diagnostic results supporting the discharge/admit diagnosis, lab results, radiology results, the need for outpatient follow up, a domestic travel consultant, to return to the emergency department if symptoms worsen or persist or if there are any questions or concerns that arise at home. 12/17 12:01 Order name: CBC with Diff; Complete Time: 13:51 kb 12/17 12:01 Order name: CMP; Complete Time: 13:51 kb 12/17 12:01 Order name: Lipase; Complete Time: 13:51 kb 12/17 12:01 Order name: Urinalysis w/ reflexes; Complete Time: 13:25 kb 12/17 12:01 Order name: US Abdomen Limited; Complete Time: 12:42 kb 12/17 12:01 Order name: IV Saline Lock; Complete Time: 12:56 kb 12/17 12:01 Order name: Labs collected and sent; Complete Time: 12:56 kb Administered Medications: 12:56 Drug: Famotidine IVP 20 mg Route: IVP; Site: right wrist; bp 14:47 Follow up: Response: No adverse reaction bp 12:57 Drug: NS 0.9% IV 1000 ml Route: IV; Rate: 1 bolus; Site: right wrist; bp 14:47 Follow up: IV Status: Completed infusion; IV Intake: 1000ml bp 12:57 Drug: TORadol - Ketorolac IVP 15 mg Route: IVP; Site: right wrist; bp 14:47 Follow up: Response: No adverse reaction bp 12:57 Drug: Ondansetron IVP 4 mg Route: IVP; Site: right wrist; bp 14:47 Follow up: Response: No adverse reaction bp Disposition Summary: 12/17/22 14:33 Discharge Ordered Location: Home kb Condition: Stable kb Diagnosis - Upper abdominal pain, unspecified kb Followup: kb - With: Emergency Department - When: As needed - Reason: Worsening of condition Followup: kb - With: Private Physician - When: 2 - 3 days - Reason: Recheck today's complaints, Continuance of care, Re-evaluation by your physician Discharge Instructions: - Discharge Summary Sheet kb - Abdominal Pain, Adult, [id number] kb Forms: - Medication Reconciliation Form kb - Thank You Letter kb - Antibiotic Education kb - Prescription Opioid Use kb - Work release form bp Prescriptions: - ondansetron 4 mg Oral Tablet,disintegrating - take 1 tablet by ORAL route every 6 hours As needed; 12 tablet; Refills: 0, kb Product Selection Permitted - Protonix 40 mg Oral Tablet - take 1 tablet by ORAL route once daily; 30 tablet; Refills: 0, Product kb Selection Permitted Signatures: Dispatcher [employer] Ana Gutierrez, LAKEISHA ALBA-Cindy Joseph, RN RN aa5 Evert Goodwin, RN RN bp
--- NOTE | 2022-12-17 14:34 | ER ---
[facility] Name: Tanvi Waters Age: 52 yrs Sex: Female : 1970 Arrival Date: 12/17/2022 Time: 11:36 Bed 16 Private MD: Diagnosis: Upper abdominal pain, unspecified Presentation: 12/17 11:56 Chief complaint: Patient states: "I think I have an ulcer and I haven't been able to aa5 get an upper GI done yet but right now the pain it's on fire". Reports being seen here approximately 2 weeks ago with same pain. Coronavirus screen: At this time, the client does not indicate any symptoms associated with coronavirus-19. Ebola Screen: Patient denies travel to an Ebola-affected area in the 21 days before illness onset. Initial Sepsis Screen: Does the patient meet any 2 criteria? HR > 90 bpm. Does the patient have a suspected source of infection? No. Patient's initial sepsis screen is negative. Risk Assessment: Do you want to hurt yourself or someone else? Patient reports no desire to harm self or others. Onset of symptoms was 2022. 11:56 Acuity: CONCHITA 3 aa5 11:56 Method Of Arrival: Ambulatory aa5 Triage Assessment: 12:00 General: Appears uncomfortable, Behavior is cooperative, appropriate for age, anxious. bp Pain: Complains of pain in abdomen. EENT: No deficits noted. Neuro: No deficits noted. Cardiovascular: No deficits noted. Respiratory: No deficits noted. GI: Reports upper abdominal pain. : No signs and/or symptoms were reported regarding the genitourinary system. Derm: No deficits noted. Musculoskeletal: No deficits noted. Historical: - Allergies: 11:56 Paxil; aa5 11:56 Zoloft; aa5 - PMHx: 11:56 Bipolar disorder; Depression; PTSD; aa5 - PSHx: 11:56 1/2 thyroid removed; ovaries removed; aa5 - Immunization history:: Adult Immunizations unknown. - Social history:: Smoking status: Patient reports the use of cigarette tobacco products, smokes one pack cigarettes per day. Screenin:00 [facility] ED Fall Risk Assessment (Adult) History of falling in the last 3 months, bp including since admission No falls in past 3 months (0 pts). Abuse screen: Denies threats or abuse. Denies injuries from another. Nutritional screening: No deficits noted. Tuberculosis screening: No symptoms or risk factors identified. Assessment: 12:00 General: SEE TRIAGE NOTE. bp 13:00 Reassessment: No changes from previously documented assessment. Patient is alert, bp oriented x 3, equal unlabored respirations, skin warm/dry/pink. 14:46 Reassessment: PT DC HOME AMBULATORY. bp Vital Signs: 11:56 BP 125 / 96; Pulse 93; Resp 16 S; Temp 97.8(TE); Pulse Ox 99% on R/A; Weight 61.23 kg aa5 (R); Height 5 ft. 2 in. (R); 13:09 BP 124 / 89; Pulse 71; Resp 16; Pulse Ox 98% ; bp 14:45 BP 124 / 85; Pulse 66; Resp 16; Pulse Ox 100% ; bp 11:56 Body Mass Index 24.69 (61.23 kg, 157.48 cm) aa5 ED Course: 11:41 Patient arrived in ED. cc5 11:56 Arm band placed on. aa5 11:57 Triage completed. aa5 12:00 Ana Nation FNP-C is [facility]. kb 12:00 Bianca Bell MD is Attending Physician. kb 12:05 Evert Goodwin, BHARATI is Primary Nurse. bp 12:24 US Abdomen Limited In Process Unspecified. EDMS 13:00 Patient has correct armband on for positive identification. Bed in low position. Call bp light in reach. Side rails up X2. 13:04 Inserted saline lock: 22 gauge in right hand, using aseptic technique. Blood collected. rs5 13:04 CBC with Diff Sent. rs5 13:04 CMP Sent. rs5 13:04 Lipase Sent. rs5 13:04 Urinalysis w/ reflexes Sent. rs5 14:46 No provider procedures requiring assistance completed. IV discontinued, intact, bp bleeding controlled, No redness/swelling at site. Pressure dressing applied. Administered Medications: 12:56 Drug: Famotidine IVP 20 mg Route: IVP; Site: right wrist; bp 14:47 Follow up: Response: No adverse reaction bp 12:57 Drug: NS 0.9% IV 1000 ml Route: IV; Rate: 1 bolus; Site: right wrist; bp 14:47 Follow up: IV Status: Completed infusion; IV Intake: 1000ml bp 12:57 Drug: TORadol - Ketorolac IVP 15 mg Route: IVP; Site: right wrist; bp 14:47 Follow up: Response: No adverse reaction bp 12:57 Drug: Ondansetron IVP 4 mg Route: IVP; Site: right wrist; bp 14:47 Follow up: Response: No adverse reaction bp Medication: 13:00 VIS not applicable for this client. bp Intake: 14:47 IV: 1000ml; Total: 1000ml. bp Outcome: 14:33 Discharge ordered by . kb 14:46 Discharged to home ambulatory, with family. bp 14:46 Condition: good 14:46 Discharge instructions given to patient, Instructed on discharge instructions, follow up and referral plans. medication usage, Demonstrated understanding of instructions, follow-up care, medications, Prescriptions given X 2. 14:47 Patient left the ED. bp Signatures: Dispatcher [employer] EDMS Ana Nation, MACHINE SHOP HELPER-C MACHINE SHOP HELPER-Cindy Joseph, RN RN aa5 Evert Goodwin RN RN bp Jared Douglass rs5 Bessie Petit cc5
[2022-12-17 15:16] VITALS: TEMP 97.8
[2022-12-17 15:18] VITALS: BP 124/85; O2SAT 100
== END 2022-12-17 14:47 | disposition home or self-care (01) ==
LOC: ER 11:36
DX: R10.10 Upper abdominal pain, unspecified (principal)
CPT/HCPCS: 36415; 76705; 80053; 81003; 83690; 85025; 96361; 96374; 96375; 99284; J2405; J7030

== ENCOUNTER 2023-01-10 15:11 | Emergency (ER) | payer SELFPAY ==
--- OUTSIDE RECORDS SUMMARY | 2023-01-10 15:25 | XMS REPORT | Continuity of Care Document ---
:[address] [facility] t Address [address] [place] [address] Care Team Providers Name Role Phone Pcp, Patient Does Not Have A Primary Care Physician [id number] LIDIA PARNELL Attending Clinician Unavailable Problems This patient has no known problems. Allergies, Adverse Reactions, Alerts Allergy Allergy Status Severity Reaction(s) Onset Inactive Treating Comm ents Source Name Type Date Date Clinician PAROXETI DRUG Active Rash 2022-0 [facility] HCL INGREDI 6-19 ity of 00:00: [place] 00 [facility] SERTRALI DRUG Active Rash 2022-0 Univers NE INGREDI 6-19 ity of 00:00: [place] 00 [facility] Paroxeti Propensi Active Rash 2022-0 Univer s ne Hcl ty to 6-19 ity of adverse 00:00: [place] reaction 00 Medical s Branch Sertrali Propensi Active Rash 3-0 Univer s ne ty to 6-19 ity of adverse 00:00: [place] reaction 00 Medical s Branch Social History Social Habit Start Date Stop Date Quantity Comments Source Sex Assigned At [birth year] [facility] [place] [facility]00 [facility] Smoking Status Start Date Stop Date Source Tobacco [facility] Medications This patient has no known medications. Immunizations Ordered Filled Immunization Date Status Comments Sour e Immunization Name Name SARS-COV-2 COVID-19 2020-10-08 Completed Unive rsity of PFIZER VACCINE 00:00:00 [facility] SARS-COV-2 COVID-19 2020-09-17 Completed Unive rsity of PFIZER VACCINE 00:00:00 [facility] Vital Signs Vital Name Observation Time Observation Value Comments Source Systolic blood 2022-12-17 21:42:00 125 mm[Hg] Univer sity of pressure [facility] Diastolic blood 2022-12-17 21:42:00 88 mm[Hg] Unive rsity of [facility] Heart rate 2022-12-17 21:42:00 82 /min Universi ty of [facility] Body temperature 2022-12-17 21:42:00 36.72 [place] [facility] Respiratory rate 2022-12-17 21:42:00 16 /min [facility] Body weight 2022-12-17 21:42:00 61.236 kg [facility] Oxygen saturation in 2022-12-17 21:42:00 97 /min [facility] Arterial blood by [facility] Pulse oximetry Branch Procedures Procedure Date / Time Performed Performing Clinician Sour e CONSENT/REFUSAL FOR 2022-12-17 21:42:56 Doctor Unassigned, No Un [facility] DIAGNOSIS AND Name [facility] TREATMENT Encounters Start End Encounter Admission Attending Care Care Encounter Source Date/Time Date/Time Type Type Clinicians Facility Department ID 2023-01-09 2023-01-09 Outpatient SFA SFA [id number] Rg 16:19:55 16:19:55 [id number] [facility] [place] 2023-01-04 2023-01-04 Outpatient SFA SFA [id number] Rg 15:39:16 15:39:16 [id number] F [place] 2022-12-17 2022-12-17 Emergency X PARMJIT, MDKB ERT [id number] Univers 16:44:00 18:32:00 LIDIA morgan of [facility] 2022-12-17 2022-12-17 Emergency Saidalin, TRAUMA [id number] Univers 16:44:00 18:32:00 [facility] [id number] it y [id number] Darrell swanson [id number] [place] [id number] Branch 2022-10-08 2022-10-08 Outpatient SFA SFA [id number] Rg 08:23:54 08:23:54 [id number] F Everardo 2022-06-26 2022-06-26 Outpatient SFA SFA [id number] Rg 11:28:43 11:28:43 [id number] F Everardo 2022-05-16 2022-05-16 Outpatient [facility] [id number] Rg 13:14:48 13:14:48 [id number] F Everardo Results Test Description Test Time Test Comments Results Result Comments Source HIV 1/2 4TH GEN, RFLX CONF 2021-11-14 03:26:41 Test Item Value Reference Range Interpretation Comme nts HIV 1/2 4TH GEN, RFLX NON-REACTIVE NON-REACTIVE UNLES S OTHERWISE INDICATED, ALL CONF (test code = 3514) TEST ING PERFORMED ATCLINICAL PATHOLOGY [facility]. [address] [place] [address] LABORATORY DIRE CTOR: MADDIE PATEL M.D. CLIA NUMBER [id number] [facility] [place]. [id number] TSH, THIRD [id number] 02:23:43 Test Item Value Reference Range Interpretation Comments TSH, THIRD GENERATION (test code 0.498 UIU/ML 0.400-4.100 = 2820) COMPREHENSIVE METABOLIC [id number] 00:11:59 Test Item Value Reference Range Interpretation Comments GLUCOSE (test code = 99 MG/DL 70-99 2216) BUN (test code = 14 MG/DL 6-20 2207) CREATININE (test 1.03 MG/DL 0.60-1.30 code = 2214) eGFR (2020 CKD-EPI) 65 ML/MIN/1.73 >60 (test code = 79228) CALC BUN/CREAT (test 14 RATIO 6-28 code = 2235) SODIUM (test code = 139 MEQ/L 262-065 9864) POTASSIUM (test code 5.0 MEQ/L 3.5-5.4 = 222) CHLORIDE (test code 102 MEQ/L 95-107 = 2215) CARBON DIOXIDE (test 24 MEQ/L 19-31 code [...] (test code = 16 U/L 5-40 2218) LIPID [id number] 00:11:59 Test Item Value Reference Range Interpretation [...] MOREINFORMATION , SEE CLIENT ANNOUNCE MENT AT [email or web address] RATIO LDL/HDL 1.05 RATIO <3.22 (test code = 223) CBC W/AUTO DIFF WITH [id number] 04:28:22 Test Item Value Reference Range Interpretation [...] RBCS 0.00 K/UL 0.00-0.11 (test code = 04563) HEMOGLOBIN [id number] 04:15:53 Test Item Value Reference Range Interpretation Comments HEMOGLOBIN A1c (test code = 36505) 5.5 % 4.2-5.6
[2023-01-10] MEDS ORDERED: ONDANSETRON 4 MG/2 ML VIAL ONE (16:03)
[2023-01-10] MEDS ORDERED: MAGNES/ALUMIN/SIMET 30ML UCUP ONE (16:03)
[2023-01-10] MEDS ORDERED: NA CHLORIDE 0.9% 500 ML ONE (16:03)
[2023-01-10] MEDS ORDERED: FAMOTIDINE 20 MG/2 ML VIAL IV ONE (16:03)
[2023-01-10 16:16] LABS: Absolute Lymphocytes (CBC) 1.6 K/uL (0.7-4.9); Hematocrit 38.1 % (36.0-45.0); Lymphocytes % 30.5 % (15.3-44.8); MCV 94.2 fL (80-100); MPV 8.6 fL (7.6-11.3); RBC Red Blood Cell Count 4.04 M/uL (3.86-4.86)
[2023-01-10 17:03] LABS: Albumin 3.6 g/dL (3.4-5.0); Bilirubin Total 0.3 mg/dL (0.2-1.0); Potassium 3.9 mEq/L (3.5-5.1); Protein, Total 6.7 g/dL (6.4-8.2); Troponin High Sensitivity 3.9 pg/mL (<58.9)
[2023-01-10] MEDS ORDERED: KETOROLAC 30 MG/ML INJ ONE (17:11)
--- NOTE | 2023-01-10 17:46 | ER ---
Nurse's Notes [facility] Name: Tanvi Waters Age: 52 yrs Sex: Female : 1970 Arrival Date: 01/10/2023 Time: 15:11 Bed 20 Private MD: Diagnosis: Epigastric pain;Dyspepsia;Nausea and vomiting Presentation: 01/10 15:37 Chief complaint: Patient states: it's my stomach again, more than likely an ulcer, has iw n/v, she took pantoprazole this morning but it's not helping , pain and n/v started at 1230 today. Coronavirus screen: At this time, the client does not indicate any symptoms associated with coronavirus-19. Ebola Screen: Patient negative for fever greater than or equal to 101.5 degrees Fahrenheit, and additional compatible Ebola Virus Disease symptoms Patient denies exposure to infectious person. Patient denies travel to an Ebola-affected area in the 21 days before illness onset. No symptoms or risks identified at this time. Initial Sepsis Screen: Does the patient meet any 2 criteria? No. Patient's initial sepsis screen is negative. Does the patient have a suspected source of infection? No. Patient's initial sepsis screen is negative. Risk Assessment: Do you want to hurt yourself or someone else? Patient reports no desire to harm self or others. Onset of symptoms was January 10, 2023. 15:37 Method Of Arrival: Ambulatory iw 15:37 Acuity: CONCHITA 3 iw Triage Assessment: 17:53 General: Appears in no apparent distress. Behavior is anxious. Pain: Complains of pain ap3 in abdomen. Neuro: Level of Consciousness is awake, alert, obeys commands, Oriented to person, place, time, situation. Cardiovascular: Patient's skin is warm and dry. Respiratory: Airway is patent Respiratory effort is even, unlabored, Respiratory pattern is regular, symmetrical. GI: Reports lower abdominal pain, upper abdominal pain, nausea. 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 - Social history:: Smoking status: Patient reports the use of cigarette tobacco products. Screenin:44 [facility] ED Fall Risk Assessment (Adult) History of falling in the last 3 months, ap3 including since admission No falls in past 3 months (0 pts). Abuse screen: Denies threats or abuse. Nutritional screening: No deficits noted. Tuberculosis screening: No symptoms or risk factors identified. Assessment: 17:54 GI: Bowel sounds present X 4 quads. Abd is soft and non tender. ap3 Vital Signs: 15:37 BP 143 / 102; Pulse 90; Resp 16; Temp 98.4; Pulse Ox 95% on R/A; Weight 62.6 kg; Height iw 5 ft. 2 in. ; Pain 8/10; 17:55 BP 134 / 83; ap3 15:37 Body Mass Index 25.24 (62.60 kg, 157.48 cm) iw 15:37 Pain Scale: Adult iw ED Course: 15:12 Patient arrived in ED. am2 15:17 Darcie Salinas MD is Attending Physician. sd2 15:38 Triage completed. iw 15:39 Arm band placed on. iw 15:43 Sera Antony, RN is Primary Nurse. ap3 15:44 ED physician to see patient. ap3 15:44 Patient has correct armband on for positive identification. Bed in low position. Call ap3 light in reach. 17:54 Provided Education on: discharge educatio. ap3 17:54 No provider procedures requiring assistance completed. IV discontinued, intact, ap3 bleeding controlled, No redness/swelling at site. Pressure dressing applied. Administered Medications: 16:15 Drug: Ondansetron IVP 4 mg Route: IVP; Site: left wrist; ap3 16:59 Follow up: Response: No adverse reaction ap3 16:15 Drug: GI Cocktail without - (Maalox PO Suspension 30 ml, Lidocaine Mucous ap3 Membrane Liquid 2 % 15 ml) Route: PO; 16:59 Follow up: Response: No adverse reaction ap3 16:16 Drug: NS 0.9% IV 500 ml Route: IV; Rate: bolus; Site: left wrist; ap3 17:55 Follow up: IV Status: Completed infusion ap3 16:16 Drug: Famotidine IVP 20 mg Route: IVP; Site: left wrist; ap3 16:59 Follow up: Response: No adverse reaction ap3 17:03 Drug: Ketorolac IVP 15 mg Route: IVP; Site: left wrist; ap3 17:55 Follow up: Response: No adverse reaction ap3 Medication: 17:54 VIS not applicable for this client. ap3 Outcome: 17:45 Discharge ordered by . sd2 17:54 Discharged to home ambulatory, with family. ap3 17:54 Condition: good 17:54 Discharge instructions given to patient, Instructed on discharge instructions, follow up and referral plans. medication usage, Demonstrated understanding of instructions, follow-up care, medications, Prescriptions given X 1. 17:55 Patient left the ED. ap3 Signatures: Conchita Squires RN RN iw Moreno, Amanda am2 Prokisch, Amanda, RN RN ap3 Darcie Salinas MD MD sd2
--- NOTE | 2023-01-10 17:46 | EDPHYS ---
Physician Documentation [facility] Name: Tanvi Waters Age: 52 yrs Sex: Female : 1970 Arrival Date: 01/10/2023 Time: 15:11 Bed 20 Private MD: ED Physician Darcie Salinas HPI: 01/10 17:41 This 52 yrs old Female presents to ER via Ambulatory with complaints of Abdominal Pain. sd2 17:41 52 yo F presents with CC of epigastric pain with burning and nausea and vomiting that sd2 started yesterday. Reports has been an ongoing issues. Seen 1 month ago for same with similar symptoms, negative workup and discharged home with oral Zofran, Carafate and protonix. She has only been taking the protonix but not regularly every day and not making dietary modifications. She does not have insurance and has not been able to follow up with a PCP or GI as of yet. Denies fever, diarrhea or urinary symptoms. . 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 - Social history:: Smoking status: Patient reports the use of cigarette tobacco products. ROS: 17:41 Constitutional: Negative for fever, chills, and weight loss, Eyes: Negative for injury, sd2 pain, redness, and discharge, Cardiovascular: Negative for chest pain, palpitations, and edema, Respiratory: Negative for shortness of breath, cough, wheezing. 17:41 Back: Negative for injury and pain, : Negative for dysuria, urinary frequency, hesitancy, urgency and hematuria. MS/Extremity: Negative for injury and deformity, Skin: Negative for injury, rash, and discoloration, Neuro: Negative for headache, numbness and tingling. 17:41 Abdomen/GI: Positive for abdominal pain, nausea and vomiting, Negative for diarrhea. Exam: 17:41 Constitutional: This is a well developed, well nourished patient who is awake, alert, sd2 and in no acute distress. Head/Face: Normocephalic, atraumatic. Eyes: EOMI, normal conjunctiva bilaterally Chest/axilla: Normal chest wall appearance and motion. Nontender with no deformity. Cardiovascular: Regular rate and rhythm with a normal S1 and S2. No gallops, murmurs, or rubs. 2+ distal pulses. Respiratory: Lungs have equal breath sounds bilaterally, clear to auscultation and percussion. No rales, rhonchi or wheezes noted. No increased work of breathing, no retractions or nasal flaring. Abdomen/GI: Soft, ND, mild epigastric tenderness, no rebound or guarding Back: No spinal tenderness. No costovertebral tenderness. Full range of motion. Skin: Warm, dry with normal turgor. Normal color with no rashes, no lesions, and no evidence of cellulitis. MS/ Extremity: Pulses equal, no cyanosis. Neurovascular intact. Full, normal range of motion. Ambulatory without difficulty. Psych: Awake, alert, with orientation to person, place and time. Behavior, mood, and affect are within normal limits. 17:47 ECG was reviewed by the Attending Physician. NSR, rate 71, no STEMI criteria sd2 Vital Signs: 15:37 BP 143 / 102; Pulse 90; Resp 16; Temp 98.4; Pulse Ox 95% on R/A; Weight 62.6 kg; Height iw 5 ft. 2 in. ; Pain 8/10; 17:55 BP 134 / 83; ap3 15:37 Body Mass Index 25.24 (62.60 kg, 157.48 cm) iw 15:37 Pain Scale: Adult iw MDM: 15:47 Patient medically screened. sd2 17:41 Differential Diagnosis Gastritis, cholecystitis, pancreatitis, SBO, diverticulitis, sd2 kidney stone, appendicitis, UTI, dehydration, electrolyte abnormality among others. Data reviewed: vital signs, nurses notes, lab test result(s), EKG. I considered the following discharge prescriptions or medication management in the emergency department Medications were administered in the Emergency Department. See MAR. Test considered but Not performed: CT: Doubt surgical pathology with benign abdominal exam and reassuring labs. Historians other than the Patient: Spouse/Significant Other: At bedside to provide further history and report. Care significantly affected by the following chronic conditions: Mental illness. Care significantly affected by the following Social Determinants of Health: Poor access to healthcare and/or lack of insurance. Counseling: I had a detailed discussion with the patient and/or guardian regarding: the historical points, exam findings, and any diagnostic results supporting the discharge/admit diagnosis, lab results, the need for outpatient follow up, to return to the emergency department if symptoms worsen or persist or if there are any questions or concerns that arise at home. ED course: Pt feeling improved after treatment. Advised of continued supportive care for home. Given sliding scale clinics for follow up as well due to lack of insurance and another refill for protonix. Advised taking regularly every day in addition to dietary modifications discussed to help with symptoms. She is comfortable with plan for discharge and outpatient follow up and verbalizes understanding of strict return precautions. . 01/10 15:47 Order name: CBC with Diff; Complete Time: 16:27 sd2 01/10 15:47 Order name: CMP; Complete Time: 17:05 sd2 01/10 15:47 Order name: Lipase; Complete Time: 17:05 sd2 01/10 15:47 Order name: Troponin High Sensitivity; Complete Time: 17:05 sd2 01/10 15:47 Order name: EKG - Nurse/Tech; Complete Time: 17:32 sd2 01/10 16:24 Order name: Labs - recollect needed: green top please; Complete Time: 16:59 em1 Administered Medications: 16:15 Drug: Ondansetron IVP 4 mg Route: IVP; Site: left wrist; ap3 16:59 Follow up: Response: No adverse reaction ap3 16:15 Drug: GI Cocktail without - (Maalox PO Suspension 30 ml, Lidocaine Mucous ap3 Membrane Liquid 2 % 15 ml) Route: PO; 16:59 Follow up: Response: No adverse reaction ap3 16:16 Drug: NS 0.9% IV 500 ml Route: IV; Rate: bolus; Site: left wrist; ap3 17:55 Follow up: IV Status: Completed infusion ap3 16:16 Drug: Famotidine IVP 20 mg Route: IVP; Site: left wrist; ap3 16:59 Follow up: Response: No adverse reaction ap3 17:03 Drug: Ketorolac IVP 15 mg Route: IVP; Site: left wrist; ap3 17:55 Follow up: Response: No adverse reaction ap3 Disposition Summary: 01/10/23 17:45 Discharge Ordered Location: Home sd2 Problem: an ongoing problem sd2 Symptoms: have improved sd2 Condition: Stable sd2 Diagnosis - Epigastric pain sd2 - Dyspepsia sd2 - Nausea and vomiting sd2 Followup: sd2 - With: Private Physician - When: 2 - 3 days - Reason: Recheck today's complaints, Continuance of care, Re-evaluation by your physician Discharge Instructions: - Discharge Summary Sheet sd2 - Abdominal Pain, Adult sd2 - Food Choices for Gastroesophageal Reflux Disease, Adult sd2 - Gastritis, Adult sd2 - Gastroesophageal Reflux Disease, Adult sd2 Forms: - Medication Reconciliation Form sd2 - Thank You Letter sd2 - Antibiotic Education sd2 - Prescription Opioid Use sd2 - Patient Portal Instructions sd2 Prescriptions: - Protonix 40 mg Oral Tablet - take 1 tablet by ORAL route once daily; 30 tablet; Refills: 0, Product sd2 Selection Permitted Signatures: Dispatcher [employer] Conchita Us, RN Hebert Beverly em1 Sera Antony RN RN ap3 Darcie Salinas MD MD sd2
[2023-01-10 19:03] VITALS: TEMP 98.4; O2SAT 95
[2023-01-10 19:04] VITALS: BP 134/83
--- NOTE | 2023-01-11 12:50 | EKG ---
Test Date: 2023-01-10 Test Time: 17:43:46 Market Research Manager: HUMBLE MEASUREMENT RESULTS: Intervals: Rate: 71 AR: 146 QRSD: 96 QT: 422 QTc: 458 Mclean: P: 55 AR: 146 QRS: -76 T: 50 INTERPRETIVE STATEMENTS: Normal sinus rhythm Left anterior fascicular block Abnormal ECG Compared to ECG 09/11/2019 19:54:33 No significant changes Electronically Signed On 01-11-23 12:49:33 CDT by Charlie Sam
== END 2023-01-10 17:55 | disposition home or self-care (01) ==
LOC: ER 15:11
DX: R10.13 Epigastric pain (principal); R11.2 Nausea with vomiting, unspecified
CPT/HCPCS: 36415; 80053; 83690; 84484; 85025; 93005; 96361; 96374; 96375; 99284; J2405; J7040

== ENCOUNTER 2023-06-12 09:00 | Emergency (ER) | payer SELFPAY ==
--- OUTSIDE RECORDS SUMMARY | 2023-06-12 09:04 | XMS REPORT | Continuity of Care Document ---
Author Name Unknown Address [address] [facility] [address] [place] [address] [facility] Address [address] [facility] 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 Role Phone Pcp, Patient Does Not Have A Primary Care Physic sue LIDIA BOONE Attending Clinician Unavailable Allergies, Adverse Reactions, Alerts Allergy Name Allergy Type Status Severity Reaction(s) Onset Date Inactive Date Treating Clinician Comments Source PAROXETI NE HCL DRUG INGREDI Active Rash 12-17 00:00: 00 [facility] SERTRALI NE DRUG INGREDI Active Rash 12-17 00:00: 00 [facility] Paroxeti ne Hcl Propensi ty to adverse reaction s Active Rash 12-17 00:00: 00 [facility] Sertrali ne Propensi ty to adverse reaction s Active Rash 12-17 00:00: 00 [facility] Social History Social Habit Start Date Stop Date Quantity Comments Source Sex Ass[birth year] At 1970 00:00:00 1970 00:00:00 [facility] Smoking Status Start Date Stop Date Source Tobacco smoking consumption unknown [facility] Vital Signs Vital Name Observation Time Observation Value Comments Conchita ailinvanessa Systolic blood pressure 2022-12-17 21:42:00 125 mm[Hg] [facility] Diastolic blood pressure 2022-12-17 21:42:00 88 mm[Hg] [facility] Heart rate 2022-12-17 21:42:00 82 /min [facility] Body temperature 2022-12-17 21:42:00 36.72 [place] [facility] Respiratory rate 2022-12-17 21:42:00 16 /min [facility] Body weight 2022-12-17 21:42:00 61.236 kg [facility] Oxygen saturation in Arterial blood by Pulse oximetry 2022-12-17 21:42:00 97 /min [place] [facility] Procedures Procedure Date / Time Performed Performing Clinicia n Source CONSENT/REFUSAL FOR DIAGNOSIS AND TREATMENT 2022-12-17 21:42:56 Doctor Unassigned, [place] [facility] Encounters Start Date/Time End Date/Time Encounter Type Admission Type Attending [facility] Care Department Encounter ID Source 2023-04-17 11:12:52 2023-04-17 11:12:52 Outpatient SFA SFA [id number] Rg Mcgee 2023-04-01 11:07:39 2023-04-01 11:07:39 Outpatient SFA SFA [id number] Rg Mcgee 2023-03-11 09:06:05 2023-03-11 09:06:05 Outpatient SFA SFA [id number] Rg Mcgee 2023-03-01 11:15:31 2023-03-01 11:15:31 Outpatient SFA SFA [id number] Rg Mcgee 2023-02-15 09:27:33 2023-02-15 09:27:33 Outpatient SFA SFA [id number] Rg Mcgee 2023-02-11 15:24:19 2023-02-11 15:24:19 Outpatient SFA SFA [id number] Rg Mcgee 2023-02-07 10:35:24 2023-02-07 10:35:24 Outpatient SFA SFA [id number] Rg Mcgee 2023-01-17 09:21:27 2023-01-17 09:21:27 Outpatient SFA SFA [id number] Rg Mcgee 2023-01-09 16:19:55 2023-01-09 16:19:55 Outpatient SFA SFA [id number] Rg Mcgee 2023-01-04 15:39:16 2023-01-04 15:39:16 Outpatient SFA [facility] [id number] Rg Mcgee 2022-12-17 16:44:00 2022-12-17 18:32:00 Emergency X [facility] ERT [id number] [facility] 2022-12-17 16:44:00 2022-12-17 18:32:00 Emergency L[facility] [id number] [facility] 2022-10-08 08:23:54 2022-10-08 08:23:54 Outpatient [facility] [id number] Rg Mcgee 2022-06-26 11:28:43 2022-06-26 11:28:43 Outpatient [facility] [id number] Rg Mcgee 2022-05-16 13:14:48 2022-05-16 13:14:48 Outpatient [facility] [id number] Rg Mcgee Results Test Description Test Time Test Comments Results Result Co mments Source TSH, THIRD [id number] 02:23:43* Test Item Value Reference Range Interpretation Comme nts TSH, THIRD GENERATION (test code = 2821) 0.498 UIU/ML 0.400-4.100 LIPID [id number] 00:11:59* Test Item Value Reference Range Interpretation Comme nts CHOLESTEROL (test code = 2210) 207 MG/DL <200 H TRIGLYCERIDES (test code = 2232) 41 MG/DL <150 HDL CHOLESTEROL (test code = 2220) 95 MG/DL >39 CALC LDL CHOL (test code = 2237) 100 MG/DL <100 H NOTE: CALCULATED LDL IS BASED ON PRABHU-SALINAS METHOD WHICHINCLUDES ADJUSTABLE TRIGLYCERIDE:VLDL CHOLESTEROL RATIO.THIS FACTOR VARIES BY MEASURED TRIGLYCERIDE AND NON-HDLCHOLESTEROL CONCENTRATIONS WITH INCREASED CALCULATED LDL SEENIN HIGHER TRIGLYCERIDE OR LOWER NON-HDL SPECIMENS. FOR MOREINFORMATION, SEE CLIENT ANNOUNCEMENT AT [email or web address] [email or web address] LDL/HDL (test code = 2238) 1.05 RATIO <3.22 COMPREHENSIVE METABOLIC [id number] 00:11:59* Test Item Value Reference Range Interpretation Comme nts GLUCOSE (test code = 2216) 99 MG/DL 70-99 BUN (test code = 2207) 14 MG/DL 6-20 CREATININE (test code = 2213) 1.03 MG/DL 0.60-1.30 eGFR (2020 CKD-EPI) (test code = 02191) 65 ML/MIN/1.73 >60 CALC BUN/CREAT (test code = 2234) 14 RATIO 6-28 SODIUM (test code = 223) 139 MEQ/L 133-146 POTASSIUM (test code = 2227) 5.0 MEQ/L 3.5-5.4 CHLORIDE (test code = 2214) 102 MEQ/L 95-107 CARBON DIOXIDE (test code = 2205) 24 MEQ/L 19-31 CALCIUM (test code = 2208) 9.7 MG/DL 8.5-10.5 PROTEIN, TOTAL (test code = 2228) 7.0 G/DL 6.1-8.3 ALBUMIN (test code = 2200) 4.7 G/DL 3.5-5.2 CALC GLOBULIN (test code = 2239) 2.3 G/DL 1.9-3.7 CALC A/G RATIO (test code = 2233) 2.0 RATIO 1.0-2.6 BILIRUBIN, TOTAL (test code = 2206) 0.2 MG/DL See_Comment [Automated me ssage] The system which generated this result transmitted reference range: <=1.2. The reference range was not used to interpret this result as normal/abnormal. ALKALINE PHOSPHATASE (test code = 2203) 68 U/L 40-132 AST (test code = 2217) 24 U/L 9-40 ALT (test code = 2219) 16 U/L 5-40 CBC W/AUTO DIFF WITH [id number] 04:28:22* Test Item Value Reference Range Interpretation Comme nts WBC (test code = 1001) 6.2 K/UL 3.5-11.0 RBC (test code = 1002) 4.43 M/UL 3.80-5.40 HEMOGLOBIN (test code = 1003) 13.7 G/DL 11.5-15.5 HEMATOCRIT (test code = 1004) 40.8 % 34.0-45.0 MCV (test code = 1005) 92.1 fL 80.0-99.0 MCH (test code = 1006) 30.9 PG 25.0-33.0 MCHC (test code = 1007) 33.6 G/DL 31.0-36.0 RDW (test code = 1038) 11.6 % 11.5-15.0 NEUTROPHILS (test code = 1008) 69.3 % LYMPHOCYTES (test code = 1010) 22.0 % MONOCYTES (test code = 1011) 6.3 % EOSINOPHILS (test code = 1012) 1.1 % BASOPHILS (test code = 1013) 1.0 % IMMATURE GRANULOCYTES (test code = 1036) 0.3 % NUCLEATED RBCS (test code = 1065) 0.0 /100 WBC'S See_Comment [Automated messa ge] The system which generated this result transmitted reference range: 0.0. The reference range was not used to interpret this result as normal/abnormal. PLATELET COUNT (test code = 1015) 217 K/UL 130-400 ABSOLUTE NEUTROPHILS (test code = 1066) 4.32 K/UL 1.50-7.50 ABSOLUTE LYMPHOCYTES (test code = 1067) 1.37 K/UL 1.00-4.00 ABSOLUTE MONOCYTES (test code = 1068) 0.39 K/UL 0.20-1.00 ABSOLUTE EOSINOPHILS (test code = 1040) 0.07 K/UL 0.00-0.50 ABSOLUTE BASOPHILS (test code = 1069) 0.06 K/UL 0.00-0.20 ABS IMMATURE GRANULOCYTES (test code = 1020) 0.02 K/UL 0.00-0.10 ABS NUCLEATED RBCS (test code = 72667) 0.00 K/UL 0.00-0.11 HEMOGLOBIN [id number] 04:15:53* Test Item Value Reference Range Interpretation Comme nts HEMOGLOBIN A1c (test code = 88500) 5.5 % 4.2-5.6
[2023-06-12] MEDS ORDERED: NA CHLORIDE 0.9% 1,000 ML ONE (09:52)
[2023-06-12] MEDS ORDERED: ONDANSETRON 4 MG/2 ML VIAL ONE (09:52)
[2023-06-12] MEDS ORDERED: PANTOPRAZOLE 40 MG INJ ONE (09:52)
[2023-06-12 10:19] LABS: Absolute Lymphocytes (CBC) 1.6 K/uL (0.7-4.9); Hematocrit 37.3 % (36.0-45.0); Lymphocytes % 23.3 % (15.3-44.8); MCV 92.5 fL (80-100); Platelets 232 thou/uL (152-406); RBC Red Blood Cell Count 4.03 M/uL (3.86-4.86)
[2023-06-12 10:33] LABS: Albumin 3.6 g/dL (3.4-5.0); Bilirubin Total 0.3 mg/dL (0.2-1.0); Potassium 3.9 mEq/L (3.5-5.1); Protein, Total 7.4 g/dL (6.4-8.2); Troponin High Sensitivity 3.9 pg/mL (<58.9)
--- NOTE | 2023-06-12 11:16 | RAD REPORT ---
EXAM DESCRIPTION: CT - Abdomen Pelvis W Contrast - 06/12/2023 10:54 am CLINICAL HISTORY: Abdominal pain COMPARISON: November 2022 TECHNIQUE: Computed axial tomography of the abdomen pelvis was obtained. 100 cc Isovue-300 was admin istered intravenously. Oral contrast was not requested which limits evaluation of bowel and appendix All CT scans are performed using dose optimization technique as appropriate and may include automated exposure control or mA/KV adjustment according to patient size. FINDINGS: The liver, spleen, pancreas, adrenal and kidneys appear unremarkable. There is no evidence of diverticulitis. Fluid in a few loops of nondilated small bowel Spondylosis L5-S1 IMPRESSION: Fluid in a few loops of nondilated small bowel may indicate enteritis
[2023-06-12 11:50] LABS: Specific Gravity 1.007 (1.005-1.030); Urine Bilirubin NEGATIVE (Negative); Urine Blood Negative (Negative); Urine Clarity Clear (Clear); Urine Color Colorless (Yellow); Urine Glucose NEGATIVE (Negative); Urine Protein NEGATIVE (Negative); Urine Urobilinogen Normal (Normal); Urine pH 6.5 (5.0-7.0)
--- NOTE | 2023-06-12 11:50 | ER ---
Nurse's Notes [facility] Name: Tanvi Waters Age: 52 yrs Sex: Female : 1970 Arrival Date: 06/12/2023 Time: 09:00 Bed 15 Private MD: Diagnosis: Abdominal pain, Generalized;Vomiting;Diarrhea, unspecified Presentation: 06/12 09:06 Chief complaint: Burning abdominal pain x 3 days, vomiting and diarrhea today. Out of hb her Protonix. Coronavirus screen: At this time, the client does not indicate any symptoms associated with coronavirus-19. Ebola Screen: No symptoms or risks identified at this time. Initial Sepsis Screen: Does the patient meet any 2 criteria? No. Patient's initial sepsis screen is negative. Does the patient have a suspected source of infection? No. Patient's initial sepsis screen is negative. Risk Assessment: Do you want to hurt yourself or someone else? Patient reports no desire to harm self or others. Onset of symptoms was June 10, 2023. 09:06 Method Of Arrival: Ambulatory 09:06 Acuity: CONCHITA 3 hb Triage Assessment: 12:30 General: Behavior is. db Historical: - Allergies: 09:08 Paxil; hb 09:08 Zoloft; hb - PMHx: 09:08 Bipolar disorder; Depression; PTSD; hb - PSHx: 09:08 1/2 thyroid removed; ovaries removed; hb - Immunization history:: Adult Immunizations up to date. - Social history:: Smoking status: Patient reports the use of cigarette tobacco products, smokes one pack cigarettes per day. - Family history:: not pertinent. Screenin:10 [facility] ED Fall Risk Assessment (Adult) History of falling in the last 3 months, db including since admission No falls in past 3 months (0 pts) Score/Fall Risk Level 0 - 2 = Low Risk Oriented to surroundings, Maintained a safe environment. Abuse screen: Denies threats or abuse. Denies injuries from another. Nutritional screening: No deficits noted. Tuberculosis screening: No symptoms or risk factors identified. Assessment: 09:50 Reassessment: Patient appears in no apparent distress at this time. Patient and/or db family updated on plan of care and expected duration. Pain level reassessed. Patient is alert, oriented x 3, equal unlabored respirations, skin warm/dry/pink. General: Appears in no apparent distress. comfortable. 10:00 Reassessment: Patient appears in no apparent distress at this time. Patient and/or db family updated on plan of care and expected duration. Pain level reassessed. Patient is alert, oriented x 3, equal unlabored respirations, skin warm/dry/pink. Pain: Complains of pain in abdomen. Neuro: Level of Consciousness is awake, alert, obeys commands, Oriented to person, place, time, situation. Cardiovascular: No deficits noted. Respiratory: Airway is patent Respiratory effort is even, unlabored, Respiratory pattern is regular, symmetrical. GI: Abdomen is flat, non-distended, Bowel sounds present X 4 quads. Abd is soft. : No deficits noted. : No deficits noted. No signs and/or symptoms were reported regarding the genitourinary system. 12:10 Reassessment: Patient appears in no apparent distress at this time. Patient and/or db family updated on plan of care and expected duration. Pain level reassessed. Patient is alert, oriented x 3, equal unlabored respirations, skin warm/dry/pink. Patient states feeling better. Patient states symptoms have improved. Vital Signs: 09:06 BP 139 / 98; Pulse 82; Resp 16; Temp 98.3(TE); Pulse Ox 100% on R/A; Weight 63.5 kg; hb Height 5 ft. 2 in. ; Pain 8/10; 10:00 BP 124 / 95; Pulse 69; Resp 16; Pulse Ox 100% on R/A; db 11:00 BP 113 / 76; Pulse 65; Resp 16; Pulse Ox 100% on R/A; db 12:00 BP 118 / 77; Pulse 63; Resp 16; Pulse Ox 100% on R/A; db 09:06 Body Mass Index 25.61 (63.50 kg, 157.48 cm) hb 09:06 Pain Scale: Adult hb ED Course: 09:02 Patient arrived in ED. mg5 09:08 Allen Narvaez MD is Attending Physician. james 09:08 Triage completed. hb 09:09 Arm band placed on. hb 09:34 Юлия Johns, RN is Primary Nurse. db 09:51 EKG done, by ED staff, reviewed by Allen Narvaez MD. db 10:00 Inserted saline lock: 22 gauge in right antecubital area, using aseptic technique. db Blood collected. 10:55 CT Abd/Pelvis - IV Contrast Only In Process Unspecified. EDDC 11:50 Windy Zapien MD is Referral Physician. [facility] 12:10 Patient has correct armband on for positive identification. Bed in low position. Call db light in reach. Side rails up X 1. Provided Education on: DISCHARGE. Client placed on continuous cardiac and pulse oximetry monitoring. NIBP monitoring applied. Warm blanket given. 12:10 No provider procedures requiring assistance completed. IV discontinued, intact, db bleeding controlled, No redness/swelling at site. Administered Medications: 10:01 Drug: NS 0.9% IV 1000 ml IV at 1 bolus Per protocol; 1000 mL bolus Route: IV; Rate: 1 db bolus; Site: right antecubital; 12:00 Follow up: Response: No adverse reaction; IV Status: Completed infusion; IV Intake: db 1000ml 10:02 Drug: Ondansetron IVP 4 mg IVP once; over 2 minutes Route: IVP; Site: right antecubital;db 12:00 Follow up: Response: No adverse reaction db 10:04 Drug: Pantoprazole IVP 40 mg IVP once Route: IVP; Site: right antecubital; db 12:00 Follow up: Response: No adverse reaction db Medication: 12:30 VIS not applicable for this client. db Intake: 12:00 IV: 1000ml; Total: 1000ml. db Outcome: 11:50 Discharge ordered by . [facility] 12:10 Discharged to home ambulatory, with family, 12:10 Condition: stable 12:10 Discharge instructions given to patient, Instructed on discharge instructions, follow up and referral plans. Prescriptions given X 2, 12:31 Patient left the ED. db Signatures: Dispatcher [employer] EDDC Allen Narvaez MD MD cha Baxter, Heather, RN RN Юлия Kimball, RN RN Christel Garcia mg5
--- NOTE | 2023-06-12 11:51 | EDPHYS ---
Physician Documentation [facility] Name: Tanvi Waters Age: 52 yrs Sex: Female : 1970 Arrival Date: 06/12/2023 Time: 09:00 Bed 15 Private MD: ED Physician Allen Narvaez HPI: 06/12 11:04 This 52 yrs old Female presents to ER via Ambulatory with complaints of james Abdominal Pain. 11:04 The patient presents with abdominal pain in the upper abdomen, in the lower abdomen. james Onset: The symptoms/episode began/occurred 3 day(s) ago. The symptoms do not radiate. Associated signs and symptoms: none. The symptoms are described as burning, crampy. Modifying factors: The symptoms are alleviated by nothing, the symptoms are aggravated by food. Severity of pain: At its worst the pain was moderate in the emergency department the pain is unchanged. The patient has experienced similar episodes in the past, several times. Historical: - Allergies: 09:08 Paxil; hb 09:08 Zoloft; hb - PMHx: 09:08 Bipolar disorder; Depression; PTSD; hb - PSHx: 09:08 1/2 thyroid removed; ovaries removed; hb - Immunization history:: Adult Immunizations up to date. - Social history:: Smoking status: Patient reports the use of cigarette tobacco products, smokes one pack cigarettes per day. - Family history:: not pertinent. ROS: 11:04 Constitutional: Negative for fever, chills, and weight loss, Eyes: Negative for injury, james pain, redness, and discharge, ENT: Negative for injury, pain, and discharge, Neck: Negative for injury, pain, and swelling, Cardiovascular: Negative for chest pain, palpitations, and edema, Respiratory: Negative for shortness of breath, cough, wheezing, and pleuritic chest pain, Back: Negative for injury and pain, : Negative for injury, bleeding, discharge, and swelling, MS/Extremity: Negative for injury and deformity, Skin: Negative for injury, rash, and discoloration, Neuro: Negative for headache, weakness, numbness, tingling, and seizure, Psych: Negative for depression, anxiety, suicide ideation, homicidal ideation, and hallucinations, Allergy/Immunology: Negative for hives, rash, and allergies, Endocrine: Negative for neck swelling, polydipsia, polyuria, polyphagia, and marked weight changes, Hematologic/Lymphatic: Negative for swollen nodes, abnormal bleeding, and unusual bruising, 11:04 Abdomen/GI: Positive for abdominal pain, nausea and vomiting, of the right upper quadrant, left upper quadrant, right lower quadrant and left lower quadrant, Exam: 11:04 Constitutional: This is a well developed, well nourished patient who is awake, alert, james and in no acute distress. Head/Face: Normocephalic, atraumatic. Eyes: Pupils equal round and reactive to light, extra-ocular motions intact. Lids and lashes normal. Conjunctiva and sclera are non-icteric and not injected. Cornea within normal limits. Periorbital areas with no swelling, redness, or edema. ENT: Nares patent. No nasal discharge, no septal abnormalities noted. Tympanic membranes are normal and external auditory canals are clear. Oropharynx with no redness, swelling, or masses, exudates, or evidence of obstruction, uvula midline. Mucous membranes moist. Neck: Trachea midline, no thyromegaly or masses palpated, and no cervical lymphadenopathy. Supple, full range of motion without nuchal rigidity, or vertebral point tenderness. No Meningismus. Chest/axilla: Normal chest wall appearance and motion. Nontender with no deformity. No lesions are appreciated. Cardiovascular: Regular rate and rhythm with a normal S1 and S2. No gallops, murmurs, or rubs. Normal PMI, no JVD. No pulse deficits. Respiratory: Lungs have equal breath sounds bilaterally, clear to auscultation and percussion. No rales, rhonchi or wheezes noted. No increased work of breathing, no retractions or nasal flaring. Back: No spinal tenderness. No costovertebral tenderness. Full range of motion. Skin: Warm, dry with normal turgor. Normal color with no rashes, no lesions, and no evidence of cellulitis. MS/ Extremity: Pulses equal, no cyanosis. Neurovascular intact. Full, normal range of motion. Neuro: Awake and alert, GCS 15, oriented to person, place, time, and situation. Cranial nerves II-XII grossly intact. Motor strength 5/5 in all extremities. Sensory grossly intact. Cerebellar exam normal. Normal gait. Psych: Awake, alert, with orientation to person, place and time. Behavior, mood, and affect are within normal limits. 11:04 ECG was reviewed by the Attending Physician. 11:04 Abdomen/GI: Inspection: abdomen appears normal, Bowel sounds: normal, in all quadrants, Palpation: abdomen is soft and non-tender, Liver: no appreciated palpable abnormalities, Hernia: not appreciated, Vital Signs: 09:06 BP 139 / 98; Pulse 82; Resp 16; Temp 98.3(TE); Pulse Ox 100% on R/A; Weight 63.5 kg; hb Height 5 ft. 2 in. ; Pain 8/10; 10:00 BP 124 / 95; Pulse 69; Resp 16; Pulse Ox 100% on R/A; db 11:00 BP 113 / 76; Pulse 65; Resp 16; Pulse Ox 100% on R/A; db 12:00 BP 118 / 77; Pulse 63; Resp 16; Pulse Ox 100% on R/A; db 09:06 Body Mass Index 25.61 (63.50 kg, 157.48 cm) hb 09:06 Pain Scale: Adult hb MDM: 09:08 Patient medically screened. [facility] 11:10 Differential diagnosis: Cholelithiasis, gastritis, gastroesophageal reflux disease, james non-specific abd pain, pancreatitis, Peptic Ulcer Disease, Pyelonephritis, urinary tract infection. Data reviewed: vital signs, nurses notes, lab test result(s), EKG, radiologic studies. Consideration of Admission/Observation Patient was admitted/placed on observation. Escalation of care including admission/observation considered. I considered the following discharge prescriptions or medication management in the emergency department Medications were administered in the Emergency Department. See MAR. Independent interpretation of the following test(s) in the Emergency Department EKG: See my EKG interpretation above. Test considered but Not performed: Ultrasound NO ABD USG. Care significantly affected by the following chronic conditions: BIPOLAR,,PTSD,DEPRESSION. Counseling: I had a detailed discussion with the patient and/or guardian regarding the historical points, exam findings, and any diagnostic results supporting the discharge/admit diagnosis, lab results, radiology results, the need for outpatient follow up, for definitive care, a family practitioner, a education department registrar. 06/12 09:10 Order name: CBC with Diff; Complete Time: 10:48 james 06/12 09:10 Order name: CMP; Complete Time: 10:48 james 06/12 09:10 Order name: Lipase; Complete Time: 10:48 james 06/12 09:10 Order name: Test, Urine [facility] 06/12 09:10 Order name: Urinalysis w/ reflexes [facility] 06/12 09:10 Order name: Troponin High Sensitivity; Complete Time: 10:48 [facility] 06/12 09:10 Order name: CT Abd/Pelvis - IV Contrast Only; Complete Time: 11:33 [facility] 06/12 09:10 Order name: EKG; Complete Time: 09:11 [facility] 06/12 09:10 Order name: IV Saline Lock; Complete Time: 10:14 [facility] 06/12 09:10 Order name: Labs collected and sent; Complete Time: 10:14 [facility] 06/12 09:10 Order name: EKG - Nurse/Tech; Complete Time: 10:14 [facility] EC:04 Rate is 67 beats/min. Rhythm is regular. QRS Bighorn is Normal. AR interval is normal. QRS james interval is normal. QT interval is normal. No Q waves. T waves are Normal. ST Segment is depressed in leads I, aVL, V4, V5, V6. Clinical impression: Abnormal EKG without significant change and No evidence of ischemia. Interpreted by me. Reviewed by me. Administered Medications: 10:01 Drug: NS 0.9% IV 1000 ml IV at 1 bolus Per protocol; 1000 mL bolus Route: IV; Rate: 1 db bolus; Site: right antecubital; 12:00 Follow up: Response: No adverse reaction; IV Status: Completed infusion; IV Intake: db 1000ml 10:02 Drug: Ondansetron IVP 4 mg IVP once; over 2 minutes Route: IVP; Site: right antecubital;db 12:00 Follow up: Response: No adverse reaction db 10:04 Drug: Pantoprazole IVP 40 mg IVP once Route: IVP; Site: right antecubital; db 12:00 Follow up: Response: No adverse reaction db Disposition Summary: 06/12/23 11:50 Discharge Ordered Notes: Location: Home james Problem: new james Symptoms: have improved james Condition: Stable james Diagnosis - Abdominal pain, Generalized james - Vomiting james - Diarrhea, unspecified james Followup: james - With: Private Physician - When: 2 - 3 days - Reason: Recheck today's complaints, Continuance of care, Re-evaluation by your physician Followup: james - With: Windy Zapien MD - When: 2 - 3 days - Reason: Recheck today's complaints, Re-evaluation by your physician Discharge Instructions: - Discharge Summary Sheet james - Abdominal Pain, Adult james - Diarrhea, Adult james - Nausea and Vomiting, Adult james - Viral Gastroenteritis, Adult james - Abdominal Pain, Adult, [id number] james - Vomiting, Adult [facility] Forms: - Medication Reconciliation Form [facility] - Thank You Letter james - Antibiotic Education james - Prescription Opioid Use james - Patient Portal Instructions [facility] - Leadership Thank You Letter [facility] Prescriptions: - ondansetron 4 mg Oral Tablet,disintegrating - take 1 tablet ORAL route every 6-8 hours; 20 tablet; Refills: 0, Product [facility] Selection Permitted - Protonix 40 mg Oral tablet, delayed release (enteric coated) - take 1 tablet ORAL route once daily; 60 tablet; Refills: 0, Product Selection [facility] Permitted Signatures: Dispatcher [employer] Allen Eugene MD MD cha Baxter, Heather, RN RN Юлия Kimball RN RN db
[2023-06-12 13:23] VITALS: TEMP 98.3; O2SAT 100
[2023-06-12 13:36] VITALS: BP 118/77
== END 2023-06-12 12:31 | disposition home or self-care (01) ==
LOC: ER 09:00
DX: R10.84 Generalized abdominal pain (principal); R11.10 Vomiting, unspecified; R19.7 Diarrhea, unspecified
CPT/HCPCS: 36415; 74177; 80053; 81003; 81025; 83690; 84484; 85025; 93005; C9113; J2405; J7030; Q9967

== ENCOUNTER 2024-02-21 17:34 | Emergency (ER) | payer SELFPAY ==
--- OUTSIDE RECORDS SUMMARY | 2024-02-21 17:37 | XMS REPORT | Continuity of Care Document ---
Author Name Unknown Address [address] [facility] [address] [place] [address] [facility] Address [address] [facility]. [address] [place] [address] [address] Care [address] Collections Officer Name Role Phone Unavailable Unavailable Unavailable Results Test Description Test Time Test Comments Results Result Co mments Source TSH, THIRD [id number] 05:50:33* Test Item Value Reference Range Interpretation Comme nts TSH, THIRD GENERATION (test code = 2821) 0.609 UIU/ML 0.400-4.100 [id number] 05:50:33* Test Item Value Reference Range Interpretation Comme nts ESTRADIOL (test code = 2505) <17.0 PG/ML SEE BELOW Note: Estradiol sensitivity is 17 PG/ML. If lower levels of quantitation are necessary, consider ultrasensitive estradiol by LC-MS/MS. EXPECTED VALUES FOR ESTRADIOL FOR FEMALES >=18 YEARS FOLLICULAR . . . . . . . . . . . . . PG/ML 12.4-233.0 OVULATION. . . . . . . . . . . . . . PG/ML 41.0-398.0 LUTEAL PHASE . . . . . . . . . . . . PG/ML 22.3-341.0 POSTMENOPAUSAL SUPPLEMENTED/NON-SUPP . PG/ML <138.0/<20.0 NOTE: TO DETERMINE NORMAL VS. SUBNORMAL ESTRADIOL IN POSTMENOPAUSAL FEMALES, CONSIDER ULTRASENSITIVE ESTRADIOL ([facility] ORDER CODE 5678). METHODOLOGY IS [employer] ELECTROCHEMILUMINESCENT IMMUNOASSAY WITH A LIMIT OF DETECTION OF 17 PG/ML. FSH + LH [id number] 05:50:33* Test Item Value Reference Range Interpretation Comme nts FOLLICLE STIM HORMONE (test code = 2700) 111.0 IU/L SEE BELOW EXPECTED VALUES FOR FSH FOR FEMALES >17 YEARS FOLLICULAR 3.5-12.5 IU/L MID-CYCLE PEAK 4.7-21.5 IU/L LUTEAL PHASE 1.7-7.7 IU/L POSTMENOPAUSAL 25.8-134.8 IU/L LUTEINIZING HORMONE (test code = 2776) 37.0 IU/L SEE BELOW EXPEC RICKEY VALUES FOR LH FOR FEMALES >17 YEARS MALES FEMALES >=18 YEARS 1.8-8.6 IU/L FOLLICULAR 2.4-12.6 IU/L MID-CYCLE PEAK 14.0-95.6 IU/L LUTEAL PHASE 1.0-11.4 IU/L POSTMENOPAUSAL 7.7-58.5 IU/L UNLESS OTHERWISE INDICATED, ALL TESTING PERFORMED AT [facility] [address] [place] [id number] SPECIAL DELIVERY CLERK: PHIL TRUJILLO M.D. CLIA NUMBER [id number] [facility] [place]. [id number]
--- NOTE | 2024-02-21 18:06 | RAD REPORT ---
EXAM DESCRIPTION: RAD - Wrist Left 3 View - 02/21/2024 5:57 pm CLINICAL HISTORY: PAIN Pain COMPARISON: <Comparisons> FINDINGS: Triquetrum fracture is seen along the dorsum of the wrist. Mild radiocarpal arthritic gonzalez ges. No acute fracture or dislocation seen.
--- NOTE | 2024-02-21 18:39 | ER ---
Nurse's Notes [facility] Name: Tanvi Ho Age: 53 yrs Sex: Female : 1970 Arrival Date: 02/21/2024 Time: 17:34 Bed 18 Private MD: Diagnosis: Fracture of right triquetrum Presentation: 02/20 17:41 Chief complaint: Patient states: her feet fell out from under her while loading her 6 car. denies LOC. reports left wrist and right knee pain. Coronavirus screen: At this time, the client does not indicate any symptoms associated with coronavirus-19. Ebola Screen: No symptoms or risks identified at this time. Initial Sepsis Screen: Does the patient meet any 2 criteria? No. Patient's initial sepsis screen is negative. Does the patient have a suspected source of infection? No. Patient's initial sepsis screen is negative. Risk Assessment: Do you want to hurt yourself or someone else? Patient reports no desire to harm self or others. Onset of symptoms was February 21, 2024. 17:41 Method Of Arrival: Ambulatory [facility] 17:41 Acuity: CONCHITA 4 6 Triage Assessment: 17:45 General: Appears in no apparent distress. comfortable, well groomed, well developed, [facility] Behavior is calm, cooperative, appropriate for age. Pain: Complains of pain in left hand and right knee. EENT: No signs and/or symptoms were reported regarding the EENT system. Neuro: Level of Consciousness is awake, alert, obeys commands, Oriented to person, place, time, situation, Appropriate for age. Cardiovascular: Capillary refill < 3 seconds. Respiratory: Airway is patent Trachea midline Respiratory effort is even, unlabored, Respiratory pattern is regular, symmetrical. GI: No signs and/or symptoms were reported involving the gastrointestinal system. : No signs and/or symptoms were reported regarding the genitourinary system. Derm: No signs and/or symptoms reported regarding the dermatologic system. Skin is healthy with good turgor, Skin is dry, Skin is pink, warm \T\ dry. Skin temperature is warm. Musculoskeletal: No signs and/or symptoms reported regarding the musculoskeletal system. Capillary refill < 3 seconds, Range of motion: limited in left wrist. Injury Description: Abrasion sustained to right knee. PRECISION FILER HAND: 18:44 LMP N/A - Post-menopause, Not me1 Historical: - Allergies: 17:43 Paxil; kc6 17:43 Zoloft; kc6 - PMHx: 17:43 Bipolar disorder; Depression; PTSD; kc6 - PSHx: 17:43 1/2 thyroid removed; ovaries removed; kc6 17:45 breast augmentation; kc6 - Immunization history:: Client reports receiving the 2nd dose of the Covid vaccine, Flu vaccine is not up to date. - Infectious Disease History:: Denies. - Social history:: Smoking status: Patient reports the use of cigarette tobacco products, smokes one pack cigarettes per day. - Family history:: not pertinent. Screenin:54 [facility] ED Fall Risk Assessment (Adult) History of falling in the last 3 months, kc6 including since admission Yes- single mechanical fall (1 pt) Confusion or Disorientation No (0 pts) Intoxicated or Sedated No (0 pts) Impaired Gait No (0 pts) Mobility Assist Device Used No (0 pt) Altered Elimination No (0 pt) Score/Fall Risk Level 0 - 2 = Low Risk. Abuse screen: Denies threats or abuse. Denies injuries from another. Nutritional screening: No deficits noted. Tuberculosis screening: No symptoms or risk factors identified. Assessment: 17:54 Reassessment: please see triage. kc6 18:13 General: Appears uncomfortable, well groomed, well developed, well nourished, Behavior me1 is calm, cooperative, appropriate for age, Reports her feet fell out from under her while loading her car. denies LOC. reports left wrist and right knee pain. Pain: Complains of pain in left wrist and right knee Pain does not radiate. Pain currently is 4 out of 10 on a pain scale. Quality of pain is described as tender, Pain began suddenly, Is continuous. Neuro: Level of Consciousness is awake, alert, obeys commands, Oriented to person, place, time, situation, Appropriate for age. Cardiovascular: Patient's skin is warm and dry. Respiratory: Airway is patent Respiratory effort is even, unlabored, Respiratory pattern is regular, symmetrical. GI: No signs and/or symptoms were reported involving the gastrointestinal system. : No signs and/or symptoms were reported regarding the genitourinary system. EENT: No signs and/or symptoms were reported regarding the EENT system. Derm: Skin is intact, is healthy with good turgor, Skin is pink, warm \T\ dry. Musculoskeletal: Reports pain in left wrist and right knee. Injury Description: trip and fall. Vital Signs: 17:41 BP 111 / 76; Pulse 103; Resp 17 S; Temp 98.7(O); Pulse Ox 96% on R/A; Weight 70.76 kg kc6 (R); Height 5 ft. 2 in. (R); Pain 7/10; 18:32 BP 114 / 92; Pulse 90; Resp 15; Pulse Ox 97% on R/A; me1 18:44 BP 115 / 70; Pulse 90; Resp 14; Temp 98.1; Pulse Ox 96% on R/A; me1 17:41 Body Mass Index 28.53 (70.76 kg, 157.48 cm) kc6 17:41 Pain Scale: Adult kc6 ED Course: 17:38 Patient arrived in ED. ra3 17:39 Rich Milian MD is Attending Physician. rt 17:43 Triage completed. kc6 17:45 Arm band placed on. kc6 17:54 Patient has correct armband on for positive identification. Adult w/ patient. kc6 17:58 Ice pack to injury. kc6 17:59 Wrist Left (3 View) XRAY In Process Unspecified. EDMS 18:12 Rocio Isbell, RN is Primary Nurse. me1 18:13 Provided Education on: POC. Verbalized understanding. . me1 18:13 No provider procedures requiring assistance completed. Patient did not have IV access me1 during this emergency room visit. 18:38 Wesley Fan MD is Referral Physician. rt Administered Medications: No medications were administered Medication: 18:13 VIS not applicable for this client. me1 Outcome: 18:38 Discharge ordered by . rt 18:51 Discharged to home ambulatory, with significant other, me1 18:51 Condition: stable 18:51 Discharge instructions given to patient, significant other, Instructed on discharge instructions, follow up and referral plans. Demonstrated understanding of instructions, follow-up care, 18:51 Patient left the ED. me1 Signatures: Dispatcher [employer] EDMS Rhiannon Bates RN RN kc6 Rich Milian MD MD rt Rocio Isbell RN RN me1 Mckenzie Hidalgo ra3 Corrections: (The following items were deleted from the chart) 17:47 17:41 Pulse 103bpm; Resp 17bpm; Spontaneous; Pulse Ox 96% RA; 70.76 kg Reported; Height kc6 5 ft. 2 in. Reported; BMI: 28.5; Pain 01/07, Adult; kc6 17:48 17:41 Pulse 103bpm; Resp 17bpm; Spontaneous; Pulse Ox 96% RA; Temp 98.7F Oral; 70.76 kg kc6 Reported; Height 5 ft. 2 in. Reported; BMI: 28.5; Pain 01/07, Adult; kc6 18:13 17:41 Chief complaint: Patient states: her feet fell out from under her while loading me1 her car. denies LOC. reports left wrist and right knee pain kc6
--- NOTE | 2024-02-21 18:39 | EDPHYS ---
Physician Documentation [facility] Name: Tanvi Ho Age: 53 yrs Sex: Female : 1970 Arrival Date: 02/21/2024 Time: 17:34 Bed 18 Private MD: ED Physician Rich Milian HPI: 02/20 17:52 This 53 yrs old Female presents to ER via Ambulatory with complaints of Wrist Injury. rt 17:52 Patient presents to the ED with an injury to the left wrist. Patient slipped and fall rt onto her outstretched left hand. Reports having abrasion to the right knee but no significant pain to that area. Denies other acute complaints at this time, not hit her head or lose consciousness. Symptoms are mild in severity, no other aggravating or alleviating factors.. OFFICE PROFESSIONALS: 18:44 LMP N/A - Post-menopause, Not me1 Historical: - Allergies: 17:43 Paxil; kc6 17:43 Zoloft; kc6 - PMHx: 17:43 Bipolar disorder; Depression; PTSD; kc6 - PSHx: 17:43 1/2 thyroid removed; ovaries removed; kc6 17:45 breast augmentation; kc6 - Immunization history:: Client reports receiving the 2nd dose of the Covid vaccine, Flu vaccine is not up to date. - Infectious Disease History:: Denies. - Social history:: Smoking status: Patient reports the use of cigarette tobacco products, smokes one pack cigarettes per day. - Family history:: not pertinent. ROS: 17:52 Constitutional: Negative for fever, chills, and weight loss, Cardiovascular: Negative rt for chest pain, palpitations, and edema, Respiratory: Negative for shortness of breath, cough, wheezing, and pleuritic chest pain, Abdomen/GI: Negative for abdominal pain, nausea, vomiting, diarrhea, and constipation, Neuro: Negative for headache, weakness, numbness, tingling, and seizure, 17:52 MS/extremity: Positive for abrasion, pain, Exam: 17:52 Constitutional: This is a well developed, well nourished patient who is awake, alert, rt and in no acute distress. Head/Face: Normocephalic, atraumatic. Skin: Warm, dry with normal turgor. Normal color with no rashes, no lesions, and no evidence of cellulitis. Neuro: Awake and alert, GCS 15, oriented to person, place, time, and situation. Cranial nerves II-XII grossly intact. Motor strength 5/5 in all extremities. Sensory grossly intact. Cerebellar exam normal. Normal gait. Psych: Awake, alert, with orientation to person, place and time. Behavior, mood, and affect are within normal limits. 17:52 Musculoskeletal/extremity: Mild swelling and tenderness overlying the ulnar region of the left wrist. No other focal areas of swelling or tenderness on the left upper extremity, pulses, motor, sensation are intact. Vital Signs: 17:41 BP 111 / 76; Pulse 103; Resp 17 S; Temp 98.7(O); Pulse Ox 96% on R/A; Weight 70.76 kg kc6 (R); Height 5 ft. 2 in. (R); Pain 7/10; 18:32 BP 114 / 92; Pulse 90; Resp 15; Pulse Ox 97% on R/A; me1 18:44 BP 115 / 70; Pulse 90; Resp 14; Temp 98.1; Pulse Ox 96% on R/A; me1 17:41 Body Mass Index 28.53 (70.76 kg, 157.48 cm) kc6 17:41 Pain Scale: Adult kc6 MDM: 17:44 Patient medically screened. rt 20:04 Differential diagnosis: Fracture, sprain. Data reviewed: vital signs, nurses notes, rt radiologic studies. Independent interpretation of the following test(s) in the Emergency Department X-Ray: My interpretation is Carpal fracture seen on my interpretation of x-ray images, the joints are well aligned. Test considered but Not performed: X-ray: Patient has only minimal pain to the knee, no significant bruising, x-ray is indicated. Counseling: I had a detailed discussion with the patient and/or guardian regarding the historical points, exam findings, and any diagnostic results supporting the discharge/admit diagnosis, radiology results, the need for outpatient follow up. Response to treatment: the patient's symptoms have markedly improved after treatment. ED course: I reassessed the patient after splinting, motor, sensation, capillary refill are intact. 02/20 17:45 Order name: Wrist Left (3 View) XRAY; Complete Time: 18:13 rt 02/20 18:22 Order name: Splint - Volar Wrist Splint; Complete Time: 18:31 rt Administered Medications: No medications were administered Disposition Summary: 02/21/24 18:38 Discharge Ordered Notes: Location: Home rt Problem: new rt Symptoms: have improved rt Condition: Stable rt Diagnosis - Fracture of right triquetrum rt Followup: rt - With: Wesley Fan MD - When: 5 - 6 days - Reason: Discharge Instructions: - Discharge Summary Sheet rt - Wrist Fracture Treated With Immobilization rt Forms: - Work release form rt - Medication Reconciliation Form rt - Antibiotic Education rt - Prescription Opioid Use rt - Patient Portal Instructions rt - Leadership Thank You Letter rt Signatures: Dispatcher [employer] Rhiannon Mahan RN RN kc6 Rich Milian MD MD rt Corrections: (The following items were deleted from the chart) 17:45 17:45 Wrist Left 3 View+RAD.RAD.BRZ ordered. EDMS EDMS
[2024-02-21 19:12] VITALS: BP 115/70; TEMP 98.1; O2SAT 96
== END 2024-02-21 18:51 | disposition home or self-care (01) ==
LOC: ER 17:34
DX: S62.112A Displaced fracture of triquetrum [cuneiform] bone, left wrist, initial encounter for closed fracture (principal); M25.561 Pain in right knee
CPT/HCPCS: 99283

== ENCOUNTER 2024-08-31 07:24 | Emergency (ER) | payer OTHER, SELFPAY ==
--- OUTSIDE RECORDS SUMMARY | 2024-08-31 07:27 | XMS REPORT | Clinical Summary ---
Author Name Unknown Organization [facility] Address [address] [place] [address] Care Team Providers Care Developmental Behavioral Physician Name Role Phone Sandee Porter Unavailable Sandee Porter Unavailable Physician, Outside Primary Care Provider Unavail able Encounters Date Type Department Care Team Description 08/04/2024 8:20 AM COAL PIPELINE OPERATOR Ancillary Procedure Mobile Mammography [address] [place] [address] Marco A Nicholson MD Screening mammography after 09/01/2023 Surgical History Surgery Date Site/Laterality Comments OOPHORECTOMY 07/01/2009 - 06/30/2010 AUGMENTATION MAMMAPLASTY W/P ROSTHETIC IMPLANT 07/01/1999 - 06/30/2000 REMOVAL OF INTACT BREAST IMPLANT 07/01/2000 - 06/30/2001 Bilateral Social History Tobacco Use Types Packs/Day Years Used Date Smoking Tobacco: Never Assessed Comments No Sex and Gender Information Value Date Recorded Sex Assigned at Not on file Legal Sex Female 12:40 PM COAL PIPELINE OPERATOR Gender Identity Not on file Sexual Orientation Not on file Obstetrics History Para Term AB IAB SAB Ectopic Multiple Livin g Live Births 1 1 Date Outcome GA Total Labor Labor/2nd/3rd Weight Sex Type Anes PTL Raine A1 A5 Name Clin Term Plan of Treatment Upcoming Encounters Date Type Department Care Team (Late st Contact Info) Description 09/15/2024 9:30 AM CDT Ancillary Procedure MD Narvaez [address] [address] 09/15/2024 10:30 AM CDT Ancillary Procedure MD Narvaez [address] [address] Health Maintenance Due Date Last Done Comments Pneumococcal Vaccine: 50+ Ye ars (1 of 1 - PCV) 2019 COVID-19 Vaccine ( season) 03/01/202403/2021, 09/17/2020 Influenza Vaccine (#1) 2024 05/04/2020 Procedures Procedure Name Priority Date/Time Associated Diagnosis Comments MOBILE MAMMO DIGITAL SCREENING BILATERAL W BRAXTON Routine 08/04/2024 8:38 AM COAL PIPELINE OPERATOR Screening mammography after 09/01/2023 Results * (ABNORMAL) Mobile Mammography Screening Bilateral with Braxton (08/04/2024 8:38 AM COAL PIPELINE OPERATOR) Anatomical Region Laterality Modality Breast Bilateral Mammography Impressions 08/04/2024 9:22 AM COAL PIPELINE OPERATOR Left 1) Focal Asymmetry: Left breast focal asymmetry in the upper outer quadrant. Right 2) Asymmetry: Right breast asymmetry. Overall BI-RAD Category: 0 - Incomplete: Needs Additional Imaging Evaluation Additional Imaging: Diagnostic Mammogram and Possible Breast Ultrasound is recommended for both breasts. Narrative 08/04/2024 9:22 AM COAL PIPELINE OPERATOR CLINICAL INDICATION: Patient is a 53 y.o. female and is seen for screening. Mobile Mammography Screening Bilateral with Braxton Computer-aided detection was utilized by the radiologist in the interpretation of this examination. Tomosynthesis was performed in CC and MLO projections. COMPARISON: No comparisons were made when reading this study. FINDINGS: The breasts are heterogeneously dense, which may obscure small masses. Left 1) Focal Asymmetry: There is a focal asymmetry seen in the upper outer quadrant of the left breast, 4 cm from the nipple. Recommend correlation with prior imaging to determine stability. If none available, recommend diagnostic mammogram and possible ultrasound for further evaluation. Right 2) Asymmetry: There is an asymmetry seen in the right breast, 2 cm from the nipple on the CC (slice 21) view. This may represent overlapping breast tissue. Recommend correlation with prior imaging to determine stability. If none available, recommend diagnostic mammogram and possible ultrasound for further evaluation. Sandee Porter [facility] MAMMOGRAPHY ORDERABLES Final Result after 09/01/2023 Care Teams Developmental Behavioral Physician Relationship Specialty Start Date End Date Sandee Porter [address] [place] [address] PCP - External Referring Family Practice 07/28/24 Sandee Porter [address] [place] [address] PCP - External Follow Up A Family Practice 07/28/24 Phys[place], [place] [address] PCP - General Oncology 07/28/24
--- NOTE | 2024-08-31 08:06 | RAD REPORT ---
EXAMINATION: ONE VIEW CHEST XR CLINICAL INDICATION: DYSPNEA TECHNIQUE: Frontal chest projection is submitted. Examination is limited by patient positioning and t echnique. COMPARISON: No prior exam. FINDINGS: The lungs are well inflated and clear. The heart is upper limit of normal in size. No displaced fract ures identified. IMPRESSION: No acute intrathoracic abnormalities.
[2024-08-31 08:13] LABS: PT Prothrombin Time 10.3 SECONDS (10.0-13.0); Protime INR 0.9
[2024-08-31 08:15] LABS: Absolute Eosinophils 0.1 K/uL (0-0.5); Absolute Lymphocytes (CBC) 0.8 K/uL (0.7-4.9); Absolute Monocytes 0.4 K/uL (0.1-1.3); Absolute Neutrophil 4.5 K/uL (1.8-8.0); Basophils % 0.6 % (0-1.3); Eosinophils % 1.4 % (0-4.4); Hematocrit 37.8 % (36.0-45.0); Hemoglobin 12.9 g/dL (12.0-15.0); Lymphocytes % 14.4 % (15.3-44.8); MCH 31.8 pg (27.0-35.0); MCHC 34.2 g/dL (32.0-36.0); MCV 92.9 fL (80-100); MPV 8.9 fL (7.6-11.3); Monocytes % 6.1 % (3.3-12.3); Neutrophils % 77.5 % (41.7-73.7); Nucleated Red Blood Cells % 0.1 % (0-0); Platelets 201 thou/uL (152-406); RBC Red Blood Cell Count 4.07 M/uL (3.86-4.86); Red Cell Distribution Width 12.8 % (12.1-15.2)
[2024-08-31] MEDS ORDERED: DIPHENHYDRAMINE 50 MG/ML VIAL ONE (08:22)
[2024-08-31] MEDS ORDERED: IPRATROPIUM BROM 0.5MG/2.5ML ONE (08:22)
[2024-08-31] MEDS ORDERED: ALBUTEROL 2.5 MG/3 ML NEB SOL ONE (08:22)
[2024-08-31 08:25] LABS: ALT/SGPT 20 U/L (13-56); AST/SGOT 19 U/L (15-37); Albumin 3.6 g/dL (3.4-5.0); Albumin/Globulin Ratio 1.1 (1.1-1.8); Alkaline Phosphatase 73 U/L (45-117); Anion Gap 8.4 mEq/L (5.0-15.0); BUN Blood Urea Nitrogen 15 mg/dL (7-18); Bicarbonate 25 mEq/L (21-32); Bilirubin Direct < 0.2 mg/dL (0-0.2); Bilirubin Total 0.2 mg/dL (0.2-1.0); Globulin 3.4 g/dL (2.3-3.5); Glomerular Filtration Rate 87 ml/min (=/>90); Glucose Level 134 mg/dL (74-106); NT PRO-BNP 47 pg/mL (<125); Potassium 4.4 mEq/L (3.5-5.1); Sodium Level 138 mEq/L (136-145); Troponin High Sensitivity 6.1 pg/mL (<58.9)
[2024-08-31 08:26] LABS: Magnesium 1.9 mg/dL (1.6-2.4)
--- NOTE | 2024-08-31 09:03 | ER ---
Nurse's Notes [facility] Name: Tanvi Ho Age: 54 yrs Sex: Female : 1970 Arrival Date: 08/31/2024 Time: 07:24 Bed 4 Private MD: Diagnosis: Shortness of breath;Essential (primary) hypertension Presentation: 08/31 07:41 Chief complaint: Pt's states "she woke me up and I could hear that she was aa5 struggling to breathe". Pt reports difficulty "getting air out". 07:41 Onset of symptoms was August 31, 2024. aa5 07:41 Acuity: CONCHITA 2 aa5 07:41 Method Of Arrival: Wheelchair aa5 07:41 Coronavirus screen: shortness of breath. Ebola Screen: Patient denies travel to an aa5 Ebola-affected area in the 21 days before illness onset. Initial Sepsis Screen: Does the patient meet any 2 criteria? HR > 90 bpm. Does the patient have a suspected source of infection? No. Patient's initial sepsis screen is negative. Risk Assessment: Do you want to hurt yourself or someone else? Patient reports no desire to harm self or others. Historical: - Allergies: 07:42 Paxil; aa5 07:42 Zoloft; aa5 - PMHx: 07:42 Bipolar disorder; Depression; PTSD; aa5 - PSHx: 07:42 1/2 thyroid removed; ovaries removed; breast augmentation; aa5 - Immunization history:: Adult Immunizations unknown. - Social history:: Smoking status: unknown. Screenin:45 Abuse screen: Denies threats or abuse. Denies injuries from another. Nutritional ss screening: No deficits noted. Tuberculosis screening: Never had TB. Assessment: 07:45 General: Appears uncomfortable, Behavior is cooperative, anxious, Denies fever, feeling ss ill. Pain: Denies pain. Neuro: Level of Consciousness is awake, alert, obeys commands. Respiratory: Reports shortness of breath since 4 this morning Airway is patent Respiratory effort is even, unlabored, Respiratory pattern is regular, symmetrical, Breath sounds are clear bilaterally. GI: Patient currently denies diarrhea, nausea, vomiting. : No signs and/or symptoms were reported regarding the genitourinary system. EENT: Oral mucosa is moist. Derm: Skin is intact, is healthy with good turgor, Skin is pink, warm \\T\\ dry. normal. 09:42 Reassessment: Patient appears in no apparent distress at this time. Patient and/or ss family updated on plan of care and expected duration. Pain level reassessed. Patient is alert, oriented x 3, equal unlabored respirations, skin warm/dry/pink. Patient states feeling better. Patient states symptoms have improved. Vital Signs: 07:41 BP 156 / 113; Pulse 91; Resp 20 S; Temp 97.8(TE); Pulse Ox 99% on R/A; aa5 08:31 BP 136 / 100; Pulse 85; Resp 21; ld1 09:40 BP 121 / 69; Pulse 73; Resp 18; Pulse Ox 98% on R/A; ld1 ED Course: 07:25 Patient arrived in ED. mr 07:37 Evette Bansal, BHARATI is Primary Nurse. ss 07:40 Malik Newton DO is Attending Physician. ms3 07:41 Arm band placed on Patient placed in an exam room, on a stretcher. aa5 07:45 Triage completed. aa5 07:45 Patient has correct armband on for positive identification. Bed in low position. ss 07:51 XRAY Chest (1 view) In Process Unspecified. EDMS 07:54 Inserted saline lock: 20 gauge in right antecubital area, using aseptic technique. ss Blood collected. Flushed with 10 mL NS. 09:02 Gatito Bell DO is Referral Physician. ms3 09:42 No provider procedures requiring assistance completed. IV discontinued, intact, ss bleeding controlled, No redness/swelling at site. Pressure dressing applied. Administered Medications: 08:35 Drug: diphenhydrAMINE IVP 25 mg IVP once Route: IVP; Site: right antecubital; ss 09:30 Follow up: Response: No adverse reaction; Marked relief of symptoms ss 08:35 Drug: DuoNeb Nebulize (2.5 mg - 0.5 mg) 3 ml Nebulizer once Route: Nebulizer; ss 09:30 Follow up: Response: No adverse reaction; Marked relief of symptoms ss Medication: 07:45 VIS not applicable for this client. ss Outcome: 09:02 Discharge ordered by . ms3 09:42 Discharged to home ambulatory, ss 09:42 Condition: good 09:42 Discharge instructions given to patient, family, Instructed on discharge instructions, follow up and referral plans. medication usage, Demonstrated understanding of instructions, follow-up care, medications, 09:45 Patient left the ED. ss Signatures: Dispatcher [employer] EDMS Luisana Cadena, Reg Reg mr Cardoza, Cindy, RN RN aa5 Evette Bansal RN RN ss Malik Newton, DO ms3 Carmen Newton RN RN ld1
--- NOTE | 2024-08-31 09:03 | EDPHYS ---
Physician Documentation [facility] Name: Tanvi Ho Age: 54 yrs Sex: Female : 1970 Arrival Date: 08/31/2024 Time: 07:24 Bed 4 Private MD: ED Physician Malik Newton HPI: 08/31 10:12 This 54 yrs old Female presents to ER via Wheelchair with complaints of Breathing ms3 Difficulty. 10:12 54-year-old female with past medical history of bipolar disorder, depression, PTSD ms3 presents to the emergency department for difficulty breathing. Patient states she feels like she cannot get the air out. Patient has not previously experienced this. She denies chest pain, nausea, vomiting. Patient endorses cough.. Historical: - Allergies: 07:42 Paxil; aa5 07:42 Zoloft; aa5 - PMHx: 07:42 Bipolar disorder; Depression; PTSD; aa5 - PSHx: 07:42 1/2 thyroid removed; ovaries removed; breast augmentation; aa5 - Immunization history:: Adult Immunizations unknown. - Social history:: Smoking status: unknown. ROS: 10:12 Constitutional: Negative for fever, and chills. Cardiovascular: Negative for chest ms3 pain, and palpitations. 10:12 MS/Extremity: Negative for injury and deformity, Skin: Negative for injury, rash, and discoloration, 10:12 Respiratory: Positive for shortness of breath, Exam: 10:12 Constitutional: This is a well developed, well nourished patient who is awake, alert, ms3 and in no acute distress. Cardiovascular: Regular rate and rhythm with a normal S1 and S2. No gallops, murmurs, or rubs. Normal PMI, no JVD. No pulse deficits. Respiratory: Lungs have equal breath sounds bilaterally, clear to auscultation and percussion. No rales, rhonchi or wheezes noted. No increased work of breathing, no retractions or nasal flaring. Abdomen/GI: Soft, non-tender, with normal bowel sounds. No distension or tympany. No guarding or rebound. No evidence of tenderness throughout. Skin: Warm, dry with normal turgor. Normal color with no rashes, no lesions, and no evidence of cellulitis. MS/ Extremity: Pulses equal, no cyanosis. Neurovascular intact. Full, normal range of motion. 10:15 ECG was reviewed by the Attending Physician. ms3 Vital Signs: 07:41 BP 156 / 113; Pulse 91; Resp 20 S; Temp 97.8(TE); Pulse Ox 99% on R/A; aa5 08:31 BP 136 / 100; Pulse 85; Resp 21; ld1 09:40 BP 121 / 69; Pulse 73; Resp 18; Pulse Ox 98% on R/A; ld1 MDM: 07:51 Medical Screening Exam initiated ms3 10:12 Differential diagnosis: Anemia Anxiety Reaction CHF exacerbation, Chronic Obstructive ms3 Pulmonary Disease pneumonia, pulmonary edema, reactive airway disease. Data reviewed: vital signs, nurses notes, lab test result(s), EKG, radiologic studies, and as a result, I will discharge patient. I considered the following discharge prescriptions or medication management in the emergency department Medications were administered in the Emergency Department. See MAR. Independent interpretation of the following test(s) in the Emergency Department EKG: See my EKG interpretation above. Historians other than the Patient: Spouse/Significant Other: Patient's significant other. Counseling: I had a detailed discussion with the patient and/or guardian regarding the historical points, exam findings, and any diagnostic results supporting the discharge/admit diagnosis, lab results, radiology results, the need for outpatient follow up, to return to the emergency department if symptoms worsen or persist or if there are any questions or concerns that arise at home. Response to treatment: the patient's symptoms have resolved after treatment. Special discussion: I discussed with the patient/guardian in detail that at this point there is no indication for admission to the hospital. It is understood, however, that if the symptoms persist or worsen the patient needs to return immediately for re-evaluation. ED course: On reevaluation patient's symptoms have improved, patient is alert and orient x 4, in no apparent distress, nontoxic-appearing, speaking full sentences, ambulatory in the emergency department. Patient to follow-up with primary care physician 2 to 3 days. Patient understands and agrees with plan. All questions were answered. Return precautions discussed include worsening symptoms, chest pain, nausea, vomiting, sweating, or any other concerns.. 08/31 07:32 Order name: Basic Metabolic Panel; Complete Time: 08:48 ms3 08/31 07:32 Order name: CBC with Diff; Complete Time: 08:48 ms3 08/31 07:32 Order name: LFT's; Complete Time: 08:48 ms3 08/31 07:32 Order name: Magnesium; Complete Time: 08:48 ms3 08/31 07:32 Order name: NT PRO-BNP; Complete Time: 08:48 ms3 08/31 07:32 Order name: PT-INR; Complete Time: 08:48 ms3 08/31 07:32 Order name: Troponin HS; Complete Time: 08:48 ms3 08/31 07:32 Order name: XRAY Chest (1 view); Complete Time: 08:48 ms3 08/31 07:32 Order name: Cardiac monitoring; Complete Time: 07:54 ms3 08/31 07:32 Order name: EKG - Nurse/Tech; Complete Time: 07:54 ms3 08/31 07:32 Order name: IV Saline Lock; Complete Time: 07:54 ms3 08/31 07:32 Order name: Labs collected and sent; Complete Time: 07:54 ms3 08/31 07:32 Order name: O2 Per Protocol; Complete Time: 07:40 ms3 08/31 07:32 Order name: O2 Sat Monitoring; Complete Time: 07:40 ms3 EC:15 Rate is 82 beats/min. Rhythm is regular. QRS [place] is Normal. Left axis deviation noted. ms3 HI interval is normal. QRS interval is normal. Clinical impression: NSR w/ Non-specific ST/T Changes. Interpreted by me. Reviewed by me. Administered Medications: 08:35 Drug: diphenhydrAMINE IVP 25 mg IVP once Route: IVP; Site: right antecubital; ss 09:30 Follow up: Response: No adverse reaction; Marked relief of symptoms ss 08:35 Drug: DuoNeb Nebulize (2.5 mg - 0.5 mg) 3 ml Nebulizer once Route: Nebulizer; ss 09:30 Follow up: Response: No adverse reaction; Marked relief of symptoms ss Disposition Summary: 08/31/24 09:02 Discharge Ordered Notes: Location: Home ms3 Condition: Stable ms3 Diagnosis - Shortness of breath ms3 - Essential (primary) hypertension ms3 Followup: ms3 - With: Gatito Bell, DO - When: 2 - 3 days - Reason: Recheck today's complaints Discharge Instructions: - Discharge Summary Sheet ms3 - Hypertension, Adult ms3 - Shortness of Breath, Adult ms3 - DASH Eating Plan ms3 Forms: - Medication Reconciliation Form ms3 - Antibiotic Education ms3 - Prescription Opioid Use ms3 - Patient Portal Instructions ms3 - Leadership Thank You Letter ms3 Signatures: Dispatcher [employer] EDCindy Levi RN RN aa5 Evette Bansal RN RN ss Malik Newton, DO ms3 Corrections: (The following items were deleted from the chart) 07:33 07:33 BASIC METABOLIC PANEL+C.LAB.BRZ ordered. EDMS EDMS 07:33 07:33 CBC+H.LAB.BRZ ordered. EDMS EDMS 07:33 07:33 HEPATIC FUNCTION+C.LAB.BRZ ordered. EDMS EDMS 07:33 07:33 MAGNESIUM+C.LAB.BRZ ordered. EDMS EDMS 07:33 07:33 PROBNP+C.LAB.BRZ ordered. EDMS EDMS 07:33 07:33 PROTIME (+INR)+COAG.LAB.BRZ ordered. EDMS EDMS 07:33 07:33 Troponin High Sensitivity+C.LAB.BRZ ordered. EDMS EDMS 07:33 07:33 Chest Single View+RAD.RAD.BRZ ordered. EDMS EDMS
[2024-08-31 09:55] VITALS: TEMP 97.8
[2024-08-31 10:11] VITALS: BP 121/69; O2SAT 98
--- NOTE | 2024-09-01 12:16 | EKG ---
Test Date: 2024-08-31 Test Time: 07:47:10 Electric Switch Tester: Barbara SI MEASUREMENT RESULTS: Intervals: Rate: 82 UT: 148 QRSD: 90 QT: 398 QTc: 464 [place]: P: 60 UT: 148 QRS: -86 T: 60 INTERPRETIVE STATEMENTS: Normal sinus rhythm Left anterior fascicular block Abnormal ECG No previous ECG available for comparison Electronically Signed On 09-01-24 12:11:42 MONITORING ANALYST by Zachary Arce
== END 2024-08-31 09:45 | disposition home or self-care (01) ==
LOC: ER 07:24
DX: R06.02 Shortness of breath (principal); R05.9 Cough, unspecified; I10 Essential (primary) hypertension; Z98.82 Breast implant status
CPT/HCPCS: 85025; 80048; 36415; 83735; 85610; 80076; 84484; 83880; 71045; J1200; J7613; J7644; 93005